=== PATIENT | female | born 1950 | race Caucasian/White ===

== ENCOUNTER 2022-10-05 14:03 | Outpatient (CLI) | payer MEDICARE, BC, SELFPAY ==
--- OUTSIDE RECORDS SUMMARY | 2022-10-05 14:05 | XMS_ITS | Encounter Summary ---
:1950 Author Organization [facility] Address [address] [place] [address] Care Team Providers Name Role Phone Olga Dixon M.D. Primary Care Provider Encounter Details Date Type Department Care Team Description 09/16/2022 Orders Only Department of Family Afsaneh Dixon M.D. Medicine in [place], [address] [place], [place] [address] [address] [place] [address] [phone] Social History Tobacco Use Types Packs/Day Years Used Date Smoking Tobacco: Former Passive Smoke Exposure: Never Smokeless Tobacco: Never Alcohol Use Standard Drinks/Week Comments Yes 0 (1 standard drink = 0.6 oz pure alcoho l) Sex Assigned at Date Recorded Female 09/08/2022 3:36 PM CDT documented as of this encounter Plan of Treatment Upcoming Encounters Date Type Specialty Care Team Description 10/06/2022 Comprehensive Visit Obstetrics and Gil Bailey M.D. Gynecology [address] [place] [address] (Wo rk) 02/07/2023 Office Visit Family Medicine Olga Dixon M.D. [address] [place] [address] (Wo rk) documented as of this encounter Visit Diagnoses Not on filedocumented in this encounter Care Teams Transitional Living Specialist Relationship Specialty Start Date End Date Olga Dixon M.D. PCP - General Family Medicine 04/14/22 [address] [place] [address] documented as of this encounter
--- OUTSIDE RECORDS SUMMARY | 2022-10-05 14:05 | XMS_ITS | Encounter Summary ---
:1950 Author Organization [facility] Address [address] [place] [address] Care Team Providers Name Role Phone Olga Dixon M.D. Primary Care Provider Reason for Referral Outpatient (Routine) - Closed Specialty Diagnoses / Procedures Referred By Contact Refer red To Contact Family Medicine Olga Dixon M .D. [facility] [address] [place] [address] Referral ID Status Reason Start Date Expiration Date Visits Requ ested Visits Authorized [id number] Closed 09/08/2022 09/07/2025 1 1 Reason for Visit Reason Comments Urinary Tract Infection X5 days Appointment Request (Routine) - Closed Specialty Diagnoses / Procedures Referred By Contact Refer red To Contact Family Medicine Referral ID Status Reason Start Date Expiration Date Visits Requ ested Visits Authorized [id number] Closed 09/03/2022 09/03/2023 1 1 Encounter Details Date Type Department Care Team Description 09/08/2022 Office Visit Department of Family Olga Dixon D ysuria (Primary Dx); Medicine in [place].DT[place] Pain Rectal WolfIvory jerry a [address] [facility] [address] [place] [phone] Social History Tobacco Use Types Packs/Day Years Used Date Smoking Tobacco: Former Passive Smoke Exposure: Never Smokeless Tobacco: Never Tobacco Cessation: Counseling Given: Yes Alcohol Use Standard Drinks/Week Comments Yes 0 (1 standard drink = 0.6 oz pure alcoho l) Sex Assigned at Date Recorded Female 09/08/2022 3:36 PM CDT documented as of this encounter Last Filed Vital Signs Vital Sign Reading Time Taken Comments Blood Pressure 164/75 09/08/2022 3:42 PM CDT Pulse 63 09/08/2022 3:37 PM CDT Temperature 36.3 ??C (97.4 ??F) 09/08/2022 3:37 PM CDT Respiratory Rate 14 09/08/2022 3:37 PM CDT Oxygen Saturation 99% 09/08/2022 3:37 PM CDT Inhaled Oxygen Concentration - - Weight 69.1 kg (152 lb 4.8 oz) 09/08/2022 3:37 PM CDT Height 160 cm (5' 2.99) 09/08/2022 3:37 PM CDT Body Mass Index 26.99 09/08/2022 3:37 PM CDT documented in this encounter Progress Notes Olga Dixon M.D. - 09/08/2022 3:30 PM CDT SUBJECTIVE CHIEF COMPLAINT / REASON FOR VISIT Karlene Patino is a 72 y.o. female who presents for evaluation of Urinary Tract Infection (X5 days). HISTORY OF PRESENT ILLNESS Patient has had a history of rectal pressure and dysuria for the last 5 days. She is had some urinary frequency but no incontinence. No diarrhea. No rectal pain just pressure. She thought it was a hemorrhoid so she is been using hemorrhoid cream and she does think that has been helping. She was worried about a UTI so she is here today for that purpose. No fevers or chills or abdominal pain. No vaginal discharge bleeding or other. She is status post hysterectomy. No previous history of kidney stones.No hematuria. Answers submitted by the patient for this visit: General Review of Symptoms (Submitted on 09/08/2022) No general issues: Yes No eye issues: Yes No ENT issues: Yes No heart issues: Yes No respiratory issues: Yes No GI issues: Yes No muscle/bone issues: Yes No skin issues: Yes No neurologic issues: Yes No mental health issues: Yes No blood/lymph issues: Yes Frequent urination: Yes Pain with urination: Yes Difficulty urinating: Yes Urgency: Yes The following portions of the patient's history were reviewed and updated as appropriate: allergies,current medications, medical history, social history, surgical history, and problem list. She is a nonsmoker. She lives at home with her . PROBLEM LIST: Patient Active Problem List Diagnosis Other Secondary Pulmonary Hypertension (HCC) Hypertension Essential Primary Tricuspid Valve Disorder Acquired Current Outpatient Medications: alendronate (FOSAMAX) 70 mg tablet, Take 70 mg by mouth once a week., Disp: , Rfl: atenoloL (TENORMIN) 50 mg tablet, Take 1 tablet (50 mg total) by mouth daily., Disp: 90 tablet, Rfl: 3 fexofenadine (MELANY) 180 mg tablet, Take 180 mg by mouth daily., Disp: , Rfl: glucosamine-chondroitin (GLUCOSAMINE-CHONDROITIN) 500-400 mg per capsule, Take 1 capsule by mouth 3(three) times a day., Disp: , Rfl: losartan (COZAAR) 100 mg tablet, Take 1 tablet (100 mg total) by mouth daily., Disp: 90 tablet, Rfl: 3 multivit-mins no.63/iron/folic (M-VIT ORAL), Take by mouth., Disp: , Rfl: omeprazole (PriLOSEC) [address] capsule, Take 1 capsule (20 mg total) by mouth every morning before breakfast., Disp: 90 capsule, Rfl: 3 triamcinolone (KENALOG) 0.1 % ointment, Apply 1 application topically 2 (two) times a day. Apply torectum., Disp: 30 g, Rfl: 0 OBJECTIVE BP (!) 164/75 (BP Location: Left arm, Patient Position: Sitting, Cuff Size: Regular) Pulse 63 Temp 36.3 ??C (Temporal) Resp 14 Ht 160 cm Wt 69.1 kg SpO2 99% BMI 26.99 kg/m?? PHYSICAL EXAM General: Patient is in no apparent distress and is alert and oriented. Mood and affect are bright and engaging. Patient is very pleasant and is articulate and she is a good historian. Neck: Supple without lymphadenopathy, JVD, carotid bruits or thyromegaly. Lungs: Clear to auscultation bilaterally. Heart: Regular rate and rhythm without murmur. Abdomen: Soft, nontender without hepatosplenomegaly, rebound or rigidity. There is no CVA tenderness. Vaginal and rectal exam is done. She has no external lesions or masses. She has mild erythema and the Nita rectal area. No evidence of trauma. No evidence of bleeding or discharge. There is some evidence of mild vaginitis. She has some external hemorrhoids that are not significantly inflamed. Lab results last 24 hours: Recent Results (from the past 24 hour(s)) Urinalysis with Microscopic if Indicated Collection Time: 09/08/22 3:36 PM Result Value Source Urine, Urine, Midstream Clarity Clear Color Yellow Blood Negative Nitrite Negative Leukocyte Esterase Negative Protein Negative Glucose Negative Ketones, QI(U) Negative Bilirubin Negative pH 6.0 Specific [place] <=1.005 Urobilinogen 0.2 ASSESSMENT / PLAN #1 Dysuria UA is completely clear of infection. I suspect some of her discomfort with urination or the end of urination is related to some external irritation either from some type of a vaginal nidus or some chemical irritation from the cream that she is putting on for the rectal discomfort. See below - Urinalysis with Microscopic if Indicated; Future; Expected date: 09/08/2022 - Urinalysis with Microscopic if Indicated #2 Pain Rectal I asked her to start using the [id number] cream and will try triamcinolone ointment to see if that does not help both her hemorrhoid dysfunction and discomfort and the topical dysfunction. She has never had an allergy to topical steroid creams. She had rash secondary to some type of a cortisone pill. Before she uses the triamcinolone vaginally I asked her to use it on her forearm for couple of days to make sure that it does not cause any irritation or rash. I will see her back in 1-2 weeks if she is not improved to determine next steps. She may need a pelvic ultrasound if the pressure continues to be an issue. She can call me in the interim if she has further problems prior to our follow-up a ppointment. Other orders - Family Medicine office visit (clinic); Future; Expected date: 09/22/2022 - triamcinolone (KENALOG) 0.1 % ointment; Apply 1 application topically 2 (two) times a day. Apply to rectum., Starting 09/08/2022, Normal documented in this encounter Plan of Treatment Upcoming Encounters Date Type Specialty Care Team Description 10/06/2022 Comprehensive Visit Obstetrics and Gil Bailey M.D. Gynecology [address] [place] [address] (Wo rk) 02/07/2023 Office Visit Family Medicine Olga Dixon M.D. [address] [place] [address] (Wo rk) Scheduled Referrals Name Type Priority Associated Diagnoses Order S [facility] Medicine Outpatient Referral Routine Expec mary kate: office visit 09/22/2022 (clinic) (Approximate), Expires: 12/09/2023 documented as of this encounter Procedures Procedure Name Priority Date/Time Associated Comments Diagnosis URINALYSIS WITH Routine 09/08/2022 3:36 PM Dysuria Result s for this MICROSCOPIC IF CDT procedure are in INDICATED, U the results section. documented in this encounter Results Urinalysis with Microscopic if Indicated (09/08/2022 3:36 PM CDT) Analysis Performed At Patho logist Time Signature Source Urine, Urine, 09/08/2022 [facility] Midstream 3:36 PM CDT Clarity Clear Clear 09/08/2022 [facility] 3:38 PM CDT Color Yellow 09/08/2022 [facility] 3:38 PM CDT Comment: ----REFERENCE VALUE---- Colorless Yellow Magalis Blood Negative Negative 09/08/2022 3:38 PM CDT [facility] Nitrite Negative Negative 09/08/2022 3:38 PM CDT [facility] Leukocyte Esterase Negative Negative 09/08/2022 3:38 PM CD T [facility] Protein Negative mg/dL 09/08/2022 3:38 PM CDT [facility] Comment: ----REFERENCE VALUE---- Negative Trace Glucose Negative Negative mg/dL 09/08/2022 3:38 PM CDT [facility] Ketones, QI(U) Negative Negative mg/dL 09/08/2022 3:38 PM C DT [facility] Bilirubin Negative Negative 09/08/2022 3:38 PM CDT [facility] pH 6.0 5.0 - 8.0 09/08/2022 3:38 PM CDT [facility] Specific [place] <=1.005 1.001 - 1.035 09/08/2022 3:38 PM CDT [facility] Urobilinogen 0.2 0.2 - 1.0 mg/dL 09/08/2022 3:38 PM CD T [facility] Specimen Anatomical Collection Method Collection Time Receive d Time (Source) Location / / Volume Laterality Urine (Urine, 09/08/2022 3:36 PM 09/08/20 3:36 Midstream) CDT PM CDT Olga Dixon M.D. LAB URINE ORDERABLES Performing Organization Address City/State/ZIP Code Phon e Number [facility]- [address] [place] [phone] [facility] [place] [address] documented in this encounter Visit Diagnoses Diagnosis Dysuria - Primary Pain Rectal documented in this encounter Care Teams Buffet Server Relationship Specialty Start Date End Date Olga Dixon M.D. PCP - General Family Medicine 04/14/22 [address] [place] [address] documented as of this encounter
--- OUTSIDE RECORDS SUMMARY | 2022-10-05 14:05 | XMS_ITS | Clinical Summary ---
:1950 Author Organization [facility] Address [address] [place] [address] Care Team Providers Name Role Phone Olga Dixon M.D. Primary Care Provider Source Comments Patient records contain information from all sites at [facility]. For routine questions regarding patient records, call [phone] during business hours, M-F 8:00 AM - 5:00 PM Central Time. Record requests for emergency care only can be directed to [phone] at any time.[facility] Allergies Active Allergy Reactions Severity Noted Date Comments Amoxicillin GI intolerance 04/14/2022 Cefprozil Rash 01/23/2007 Celecoxib Other (see comments) 04/14/2022 Cetirizine Palpitations 12/17/2013 Clavulanic Acid GI intolerance 04/14/2022 Corticosteroids Other (see comments) 04/14/2022 (Glucocorticoids) Diclofenac-Misoprostol Palpitations 01/23/2007 Erythromycin GI intolerance, Other 01/23/2007 hypera ctive (see comments) Hydrocortisone Rash 12/17/2013 Latex Rash 12/26/2013 wore a band-aid for 1/2 day and had rash Lisinopril Cough 04/14/2022 Loratadine Other (see comments) 12/17/2013 nose bl eeds Methotrexate Other (see comments) 12/17/2013 light h eaded Misoprostol Other (see comments) 12/25/2013 Nsaids (Non-Steroidal Other (see comments) 12/25/2013 Anti-Inflammatory Drug) Sucralfate Palpitations 12/17/2013 Sulfamethoxazole-Trimeth Other (see comments) 01/23/20 07 she can't remember oprim Terfenadine Other (see comments) 12/25/2013 Triamcinolone Other (see comments) Low 09/24/2022 burnin g Medications Medication Sig Dispensed Refills Start End Date Status Date alendronate Take 70 mg by 0 Acti ve (FOSAMAX) 70 mg mouth once a 2 tablet week. multivit-mins Take by mouth. 0 A ctive no.63/iron/folic (M-VIT ORAL) glucosamine-chondroi Take 1 capsule 0 Active tin by mouth 3 (GLUCOSAMINE-CHONDRO (three) times a ITIN) 500-400 mg per day. capsule fexofenadine Take 180 mg by 0 Ac tive (MELANY) 180 mg mouth daily. tablet losartan (COZAAR) Take 1 tablet 90 tablet 3 04/14/20 Active 100 mg tablet (100 mg total) 2 23 by mouth daily. omeprazole Take 1 capsule 90 capsule 3 04/22/20 Act vinh (PriLOSEC) [address] (20 mg total) by 2 23 capsule mouth every morning before breakfast. atenoloL (TENORMIN) Take 1 tablet 90 tablet 3 Active 50 mg tablet (50 mg total) by 2 23 mouth daily. phenazopyridine Take 1 tablet 10 tablet 0 10/24/20 Active (PYRIDIUM) 100 mg (100 mg total) 2 22 tablet by mouth 3 (three) times a day as needed for painful urination. triamcinolone Apply 1 30 g 0 09/24/20 Discon tinued (KENALOG) 0.1 % application 2 22 ointment topically 2 (two) times a day. Apply to rectum. fluconazole Take 1 tablet 1 tablet 0 09/24/20 Expi red (DIFLUCAN) 150 mg (150 mg total) 2 22 tablet by mouth once for 1 dose. 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 09/14/2022 Orders Only Family Olga Ge M.D. 09/08/2022 Office Visit [facility] Olga Ge Dysuria ( Primary Dx); Janette Reynolds Pain Rectal 08/16/2022 Hospital Encounter Radiology Olga Dixon Screen ing Mammogram Janette Reynolds Breast Cancer 08/04/2022 Office Visit Family Medicine Olga Dixon Hypertens ion Essential Primary (Primary Dx); Janette Reynolds Acute Cystitis Without Hematuria from Last 3 Months Immunizations Name Administration Dates Next Due HZV (ZOSTAVAX) 09/12/2015 PCV13 09/12/2015 PPSV23 08/09/2017 SARS-COV-2 (COVID-19) - MODERNA 02/11/2021 Tdap 07/16/2010 Family History Relation Name Status Comments Father Mother Social History Tobacco Use Types Packs/Day Years Used Date Smoking Tobacco: Former Passive Smoke Exposure: Never Smokeless Tobacco: Never Tobacco Cessation: Counseling Given: Yes Alcohol Use Standard Drinks/Week Comments Yes 0 (1 standard drink = 0.6 oz pure alcoho l) Sex Assigned at Date Recorded Female 09/08/2022 3:36 PM CDT Last Filed Vital Signs Vital Sign Reading Time Taken Comments Blood Pressure 138/71 09/24/2022 1:47 PM CDT Pulse 63 09/24/2022 1:39 PM CDT Temperature 36.3 ??C (97.4 ??F) 09/08/2022 3:37 PM CDT Respiratory Rate 14 09/08/2022 3:37 PM CDT Oxygen Saturation 99% 09/24/2022 1:39 PM CDT Inhaled Oxygen Concentration - - Weight 68.5 kg (151 lb) 09/24/2022 1:39 PM CDT Height 160 cm (5' 2.99) 09/24/2022 1:39 PM CDT Body Mass Index 26.76 09/24/2022 1:39 PM CDT Plan of Treatment Upcoming Encounters Date Type Specialty Care Team Description 10/06/2022 Comprehensive Visit Obstetrics and Gil Bailey M.D. Gynecology [address] [place] [address] (Wo rk) 02/07/2023 Office Visit Family Medicine Olga Dixon M.D. [address] [place] [phone] (Wo rk) Health Maintenance Due Date Last Done Comments CT Colonography 1950 Cologuard 1950 Colonoscopy 1950 Colorectal Cancer Screening 1950 FIT 1950 Hepatitis C Screening 1950 Zoster Vaccines (2 of 3) 11/07/2015 09/12/2015 DTaP,Tdap,and Td Vaccines (2 - Td 07/16/2020 07/16/2010 or Tdap) COVID-19 Vaccine (2 - Moderna 03/11/2021 02/11/2021 series) Influenza Vaccine (#1) 2022 Creatinine Level 04/30/2023 04/30/2022, 04/14/2022, 12/27/2013, Additional history exists Potassium Level 04/30/2023 04/30/2022, 04/14/2022, 12/27/2013 Sodium Level 04/30/2023 04/30/2022, 04/14/2022, 12/27/2013 Visit: Chronic Disease, age 18+ 08/04/2023 08/04/2022 Mammogram 08/16/2023 08/16/2022, 10/12/2018, 05/19/2016, Additional history exists Office Visit for Blood Pressure 09/24/2023 09/24/2022 Check / Re-check Fasting Glucose for Diabetes 04/30/2025 04/30/2022, 022, Screening 12/27/2013 Pneumococcal vaccine (65+ years) Completed 08/09/2017, Depression Screening (Annual Completed 04/30/2022 PHQ-2) Fall Risk Screen (Annual) Completed 04/30/2022 Medical Devices Implanted Type Area Warehouse Order Filler Device Shelf Model / Identifier Expiration Serial / Date Lot Align Sling Retropubic - Montes [id number] Urogenital Other/Legacy - [employer] Implanted: Qty: 1 on 12/26/2013 Implant See Implant Description Description: Device Warehouse Order Filler - [employer] Patient Care Division. Body Location - Other. Not Applicable. Device Status Text - URO [id number]. Procedures Procedure Name Priority Date/Time Associated Comments Diagnosis URINALYSIS WITH Routine 09/08/2022 3:36 Dysuria Results f or MICROSCOPIC IF PM CDT this procedur e INDICATED, U are in the results section. BI BREAST SCREENING RAD - Routine 08/16/2022 3:04 Screening Resu lts for BILATERAL WITH (most inpatients PM CDT Mammogram Breast this procedure TOMOSYNTHESIS and all Cancer are in the outpatients) results section. from Last 3 Months Results Urinalysis with Microscopic if Indicated (09/08/2022 [...] 8.0 09/08/2022 3:38 PM CDT [facility] Specific [place] <=1.005 1.001 - 1.035 09/08/2022 3:38 PM CDT [facility] Urobilinogen 0.2 0.2 - 1.0 mg/dL 09/08/2022 3:38 PM CD T [facility] Specimen Anatomical Collection Method Collection Time Receive d Time (Source) Location / / Volume Laterality Urine (Urine, 09/08/2022 3:36 PM 09/08/20 3:36 Midstream) CDT PM CDT Olga Dixon M.D. LAB URINE ORDERABLES Performing Organization Address City/State/ZIP Code Phon e Number [facility]- [address] [place], [place] [address] [facility] [place] [place] [address] [facility] [address] BI Breast Screening Bilateral with Tomosynthesis (08/16/2022 3:04 PM CDT) Anatomical Region Laterality Modality Breast, Breast Imaging RST LOS, Breast Imaging ARZ LOS, [address] Bilateral Mammography Imaging FLA LOS Specimen (Source) Anatomical Collection Method Collection Time Re ceived Time Location / / Volume Laterality 08/16/2022 4:24 PM CDT Impressions 08/16/2022 4:25 PM CDT Negative. RECOMMENDATION: ??Annual Screening Mammo gram ASSESSMENT: ??BI-RADS: 1: Negative. Narrative 08/16/2022 4:25 PM CDT EXAM: ??BI BREAST SCREENING BILATERAL WITH TOMOSYNTHESIS Current study was evaluated with a Compu ter Aided Detection (CAD) system. INDICATION: ??Screening mammogram. COMPARISON: ??Prior exam(s) were availab le and reviewed for comparison. DENSITY: ??a. The breast(s) are almost e ntirely fatty. FINDINGS: ??No mammographic findings of malignancy. Procedure Note Gómez Pfeiffer M.D. - 08/16/2022Formatt ing of this note might be different from the original. EXAM: BI BREAST SCREENING BILATERAL WITH TOMOSYNTHESIS Current study was evaluated with a Compu ter Aided Detection (CAD) system. INDICATION: Screening mammogram. COMPARISON: Prior exam(s) were available and reviewed for comparison. DENSITY: a. The breast(s) are almost ent irely fatty. FINDINGS: No mammographic findings of ma lignancy. IMPRESSION: Negative. RECOMMENDATION: Annual Screening Mammogr am ASSESSMENT: BI-RADS: 1: Negative. Olga Dixon M.D. IMG BI PROCEDURES from Last 3 Months Insurance Payer Benefit Plan Subscriber ID Effective Phone Address Typ e / Group Dates MEDICARE MEDICARE A [id number] 2021-Pres [address] [place] [address] [employer] [place] [id number] 2021-Pres [phone] PO TACO X Cost Share BLUE [employer]IELD BLUE COST ent [phone] [place] [address] Care Teams Abattoir Supervisor Relationship Specialty Start Date End Date Olga Dixon M.D. PCP - General Family Medicine 04/14/22 [address] [place] [phone]
--- OUTSIDE RECORDS SUMMARY | 2022-10-05 14:05 | XMS_ITS | Encounter Summary ---
:1950 Author Organization [facility] Address [address] [place] [address] Care Team Providers Name Role Phone Olga Dixon M.D. Primary Care Provider Encounter Details Date Type Department Care Team Description 09/14/2022 Orders Only Department of Family Afsaneh Dixon M.D. Medicine in [place], [address] [place], [place] [address] [address] [place] [address] [phone] Social History Tobacco Use Types Packs/Day Years [...] Obstetrics and Gil Bailey M.D. Gynecology [address] [place] [address] (Wo rk) 02/07/2023 Office Visit Family Medicine Olga Dixon M.D. [address] [place] [address] (Wo rk) documented as of this encounter Visit Diagnoses Not on filedocumented in this encounter Care Teams Global Professional Relationship Specialty Start Date End Date Olga Dixon M.D. PCP - General Family Medicine 04/14/22 [address] [place] [address] documented as of this encounter
--- OUTSIDE RECORDS SUMMARY | 2022-10-05 14:05 | XMS_ITS | Encounter Summary ---
:1950 Author Organization [facility] Address [address] [place] [address] Care Team Providers Name Role Phone Olga Dixon M.D. Primary Care Provider Encounter Details Date Type Department Care Team Description 09/28/2022 Orders Only [facility] SELF TEST [facility] Olga Dixon, Screening Cancer [address] [facility] [place] [place] [address] [phone] [place], [place] [phone] (Abbe johnson) Social History Tobacco Use Types Packs/Day Years [...] Obstetrics and Gil Bailey M.D. Gynecology [address] [place] [phone] (Wo rk) 02/07/2023 Office Visit Family Medicine Olga Dixon M.D. [address] [place] [address] (Abbe johnson) Scheduled Orders Name Type Priority Associated Diagnoses Order S chedule Cologuard-Sent Out Lab Lab Routine Screening Cancer C olon Expected: 10/12/2022 (Approximate), Expires: 12/29/2023 documented as of this encounter Visit Diagnoses Diagnosis Screening Cancer Colon documented in this encounter Care Teams Pasting Inspector Relationship Specialty Start Date End Date Olga Dixon M.D. PCP - General Family Medicine 04/14/[address] [place] [phone] documented as of this encounter
--- OUTSIDE RECORDS SUMMARY | 2022-10-05 14:05 | XMS_ITS | Encounter Summary ---
:1950 Author Organization [facility] Address [address] [place] [address] Care Team Providers Name Role Phone Olga Dixon M.D. 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 [address] [place] [address] Referral ID Status Reason Start Date Expiration Date Visits V isits Requested Authorized [id number] Authorized 09/24/2022 09/24/2023 1 1 Reason for Visit Reason Comments Hemorrhoids Outpatient (Routine) - Closed Specialty Diagnoses / Procedures Referred By Contact Refer red To Contact Family Medicine Olga Dixon M .D. [facility] [address] [place] [address] Referral ID Status Reason Start Date Expiration Date Visits Requ ested Visits Authorized [id number] Closed 09/08/2022 09/07/2025 1 1 Encounter Details Date Type Department Care Team Description 09/24/2022 Office Visit Department of Family Olga Dixon U rethral Disorders In Diseases Classified Elsewhere (Primary Dx); Medicine in M.D. Aneurysm Aortic Ascending Without Ruptur e ([facility]) [place] Wolf [address] [facility] [address] [place] [phone] Social History Tobacco Use Types Packs/Day Years [...] Pulse 63 09/24/2022 1:39 PM CDT Temperature - - Respiratory Rate - - Oxygen Saturation 99% 09/24/2022 1:39 PM CDT Inhaled Oxygen Concentration - - Weight 68.5 kg (151 lb) 09/24/2022 1:39 PM CDT Height 160 cm (5' 2.99) 09/24/2022 1:39 PM CDT Body Mass Index 26.76 09/24/2022 1:39 PM CDT documented in this encounter Progress Notes Olga Dixon M.D. - 09/24/2022 2:00 PM CDT SUBJECTIVE CHIEF COMPLAINT / REASON FOR VISIT Karlene Patino is a 72 y.o. female who presents for evaluation of painful urination. HISTORY OF PRESENT ILLNESS Patient returns today for continued dysuria. She has significant urethral burning after urination. No discharge or itching or odor. She has no stooling issues. She notes that initially she did have some rectal discomfort and so is using xoml-meg-hzbqnlt products and she thought she might have a reaction to those srot-deg-emsbhog products for her hemorrhoids which created the dysuria. She was seen by me on September 08 with a fairly normal exam. We tried topical steroid ointment as I was concerned that she was having some chemical irritation from the howk-ytt-msgxdod products but she states that thetriamcinolone ointment significantly worsened her issue. Right now she is not really using any issue. She is not having significant frequency. No fevers or chills. UA last time was normal. Symptoms have been going on 3-4 weeks. The following portions of the patient's history were reviewed and updated as appropriate: allergies,current medications, medical history, and problem list. She does not smoke or drink alcohol. 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 PHYSICAL EXAM She is in no apparent distress and she is very cooperative. Pelvic exam is completed. Today she has no perirectal inflammation or irritation. No active hemorrhoids are noted. She is no vaginal discharge or erythema. She does however today have a small ulcer at the 6 o'clock position just underneath the urethra. The also has some surrounding erythema. ASSESSMENT / PLAN #1 Aneurysm Aortic Ascending Without Rupture (HCC) Patient has follow-up ultrasound scheduled. She is currently asymptomatic and aneurysm diameter is less than 5 cm. 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 Will have her see Urogynecology for their expert opinion on next steps for the small ulcer. In the interim I did give her Pyridium just to help with dysuria. I gave her 10 tablets to try to see if that does not help make urination more comfortable. UA has been completed and there is no active infection. Patient does want to try some treatment for possible yeast infection. She tells me she has a history of yeast infection inthe past. 150 mg of Diflucan is offered as we want to avoid topicals at this time. - Obstetrics and Gynecology - Urogynecology consult (clinic); Future; Expected date: 09/24/2022 Other orders - Family Medicine office visit (clinic) - phenazopyridine (PYRIDIUM) 100 mg tablet; Take 1 tablet (100 mg total) by mouth 3 (three) times a day as needed for painful urination., Starting 09/24/2022, Until 10/24/2022 at 2359, Normal Answers submitted by the patient for this [...] urination: Yes Difficulty urinating: Yes Urgency: Yes documented in this encounter Plan of Treatment Upcoming Encounters Date Type Specialty Care Team Description 10/06/2022 Comprehensive Visit [facility] and Gil Bailey M.D. Gynecology [address] [place] [address] (Abbe johnson) 02/07/2023 Office Visit Family Medicine Olga Dixon M.D. [address] [place] [phone] (Abbe johnson) Scheduled Referrals Name Type Priority Associated Order Schedule Diagnoses Obstetrics and Outpatient Referral Routine Urethral Disorders Expected: Gynecology - In Diseases 09/24/2022 Urogynecology consult Classified (Appro ximate), (clinic) Elsewhere Expires: 12/25/2023 documented as of this encounter Visit Diagnoses Diagnosis Urethral Disorders In Diseases Classifie d Elsewhere - Primary Aneurysm Aortic Ascending Without Ruptur e (HCC) documented in this encounter Care Teams Liquor Runner Relationship Specialty Start Date End Date Olga Dixon M.D. PCP - General Family Medicine 04/14/[address] [place] [phone] documented as of this encounter
--- OUTSIDE RECORDS SUMMARY | 2022-10-05 14:06 | XMS_ITS | Encounter Summary ---
:1950 Author Organization [facility] Address [address] [place] [address] Care Team Providers Name Role Phone Unavailable Primary Care Provider Unavailable Encounter Details Date Type Department Care Team Description 02/11/2021 [facility] (Primary Dx) [address] [place] [address] Social History Tobacco Use Types Packs/Day Years Used Date Smoking Tobacco: Former Sex Assigned at Date Recorded Female 09/08/2022 3:36 PM CDT documented as of this encounter Plan of Treatment Upcoming Encounters Date Type Specialty Care Team Description 10/06/2022 Comprehensive Visit Obstetrics and Gil Bailey M.D. Gynecology [address] [place] [phone] (Abbe johnson) 02/07/2023 Office Visit Family Medicine Olga Dixon M.D. [address] [place] [address] (Abbe johnson) documented as of this encounter Visit Diagnoses Diagnosis Encounter For COVID-19 Vaccine Immunizat ion - Primary documented in this encounter
--- OUTSIDE RECORDS SUMMARY | 2022-10-05 14:06 | XMS_ITS | Encounter Summary ---
:1950 Author Organization [facility] Address [address] [place] [address] Care Team Providers Name Role Phone Unavailable Primary Care Provider Unavailable Encounter Details Date Type Department Care Team Description 07/20/[address] [facility] Amanda Clark Au.D. [address] [place] [address] (Wo rk) Social History Tobacco Use Types Packs/Day Years Used Date Smoking Tobacco: Never Assessed Sex Assigned at Date Recorded Female 09/08/2022 3:36 PM CDT documented as of this encounter Medications at Time of Discharge Medication Sig Dispensed Refills Start Date End Date atenoloL (TENORMIN) 25 mg Take 1 tablet by 0 11/2904/22/2022 tablet mouth every evening. documented as of this encounter Consult Notes Amanda Greene Au.D. - 07/20/2016 4:05 PM CDT Audiologic Evaluation Report CHIEF COMPLAINT/REASON FOR VISIT Hearing loss HISTORY Karlene comes in today for a follow-up audiologic evaluation. She was seen previously for a sudden hearing loss in her left ear which occurred about 2 months ago. She was prescribed prednisone and antibiotics, and she is here today for a 1 month follow-up audiogram. She reports her hearing has seemed to improve since the last time she was here. She still is having occasional tinnitus and struggles when in background noise. She denies any otalgia, otorrhea, vertigo. EVALUATION An otoscopic examination was performed prior to testing. Audiologic evaluation showed normal hearing sensitivity at 250 Hz, sloping to a mild sensorineural hearing loss 500-1000 Hz, rising to normal hearing sensitivity 2-8 kHz, in the right ear. The left ear showed a moderate rising to mild sensorineural hearing loss 250-3000 Hz, sloping to moderate to moderately-severe sensorineural hearing loss 4-8 kHz. The word recognition scores were excellent bilaterally. Tympanometry was performed and showed type A tympanograms with normal ear canal volumes. This is consistent with intact and appropriately mobile tympanic membranes with normal middle ear pressure bilaterally. IMPRESSION/REPORT/PLAN Karlene presents today with a mild sensorineural hearing loss in the right ear and a mild to moderately-severe sensorineural hearing loss in the left ear. The left ear thresholds have improved between 5-20 dB across most frequencies. It is recommended that Karlene see ENT as scheduled. She should return for a recheck of her hearing pending intervention, which should include acoustic reflexes. A copy of todays test results as well as educational materials about hearing loss and communicationwere provided. RECOMMENDATIONS 1. Return for further testing if a change in hearing is noted. 2. Follow-up with ENT, as scheduled. 3. Recheck hearing pending intervention from ENT DIAGNOSIS 1. Sensorinerual hearing loss, bilateral 2. Tinnitus, bilateral REFERRING PROVIDER Dr. Chen Electronically Signed By: AMANDA GREENE On: 07/20/2016 04:06 PM Source: [facility] POWERCHART Document Id: [id number] documented in this encounter Plan of Treatment Upcoming Encounters Date Type Specialty Care Team Description 10/06/2022 Comprehensive Visit Obstetrics and Gil Bailey M.D. Gynecology [address] [place] [phone] (Abbe johnson) 02/07/2023 Office Visit Family Medicine Olga Dixon M.D. [address] [place] [phone] (Abbe johnson) documented as of this encounter Visit Diagnoses Not on filedocumented in this encounter
--- OUTSIDE RECORDS SUMMARY | 2022-10-05 14:06 | XMS_ITS | Encounter Summary ---
:1950 Author Organization [facility] Address [address] [place] [address] Care Team Providers Name Role Phone Olga Dixon M.D. Primary Care Provider Reason for Visit Reason Comments Urinary Tract Infection Back Pain Appointment Request (Routine) - Closed Specialty Diagnoses / Procedures Referred By Contact Refer red To Contact Family Medicine Referral ID Status Reason Start Date Expiration Date Visits Requ ested Visits Authorized [id number] Closed 06/28/2022 06/28/2023 1 1 Encounter Details Date Type Department Care Team Description 06/30/2022 Office Visit Department of Family Sara Brunner (Primary Dx); Medicine in M, INSECT CONTROL AIDE, C.N.P. Infection Urinary Tract Acute [facility] [address] [facility] [place] [address] [place] [phone] Social History Tobacco Use Types Packs/Day Years Used Date Smoking Tobacco: Former Smokeless Tobacco: Never Tobacco Cessation: Counseling Given: Yes Alcohol Use Standard Drinks/Week Comments Yes 0 (1 standard drink = 0.6 oz pure alcoho l) Sex Assigned at Date Recorded Female 09/08/2022 3:36 PM CDT documented as of this encounter Last Filed Vital Signs Vital Sign Reading Time Taken Comments Blood Pressure 165/73 06/30/2022 2:23 PM CDT Pulse 75 06/30/2022 2:13 PM CDT Temperature 35 ??C (95 ??F) 06/30/2022 2:13 PM CDT Respiratory Rate - - Oxygen Saturation 100% 06/30/2022 2:13 PM CDT Inhaled Oxygen Concentration - - Weight 67.6 kg (149 lb) 06/30/2022 2:13 PM CDT Height 160 cm (5' 2.99) 06/30/2022 2:13 PM CDT Body Mass Index 26.4 06/30/2022 2:13 PM CDT documented in this encounter Progress Notes Sara Brunner APRN, MiniNJoseline. - 06/30/2022 2:30 PM CDT SUBJECTIVE REASON FOR VISIT Urinary Tract Infection and Back Pain HISTORY OF PRESENT ILLNESS: Karlene Patino is a 71 y.o. female who presents today for possible UTI. Symptoms of dysuria and urgency have been going on for 1 week(s).C/O mild right lower flank pain on and off, no N/V/chills/sweats. She describes no fever, abdominal pain, and blood in urine. OBJECTIVE VITAL SIGNS: BP (!) 165/73 Pulse 75 Temp (!) 35 ??C (Temporal) Ht 160 cm Wt 67.6 kg SpO2 100% BMI 26.40 kg/m?? PHYSICAL EXAM: GENERAL: She is alert, oriented and appears to be in no distress. CARDIOVASCULAR: Heart is regular rate and rhythm. There are no murmurs, gallops or rubs. RESPIRATORY: Breathing is nonlabored. Lungs are clear to auscultation bilaterally. GI/: Abdomen is soft, bowel sounds are active. Nosuprapubic tenderness, no CVA tenderness EXTREMITIES: There is no lower extremity edema. Diagnostics Results for orders placed or performed in visit on 06/30/22 Urinalysis with Microscopic if Indicated Result Value Ref Range Source Urine, Urine, Clean Catch Clarity Clear Clear Color Yellow Blood Trace (A) Negative Nitrite Negative Negative Leukocyte Esterase Large (A) Negative Protein Negative mg/dL Glucose Negative Negative mg/dL Ketones, QI(U) Negative Negative mg/dL Bilirubin Negative Negative pH 5.5 5.0 - 8.0 Specific Thurston <=1.005 1.001 - 1.035 Urobilinogen 0.2 0.2 - 1.0 mg/dL Microscopic Manual Result Value Ref Range White Blood Cells 51-100 (A) /hpf Red Blood Cells None Seen 0 - 2 /hpf Bacteria Present (A) None Seen ASSESSMENT / PLAN #1 Dysuria - Urinalysis with Microscopic if Indicated Medication recommendations: Nitrofurantoin Further testing ordered (Blood culture, CBC, BMP): Yes- urine culture She was instructed to drink plenty of water and use Tylenol/ibuprofen as needed for fevers or pain. UTI prevention recommendations were discussed. She was instructed to return in 48-72 hours if no improvement in symptoms or if she develop high fevers, vomiting with the inability to tolerate fluids, flank pain or lethargy. documented in this encounter Plan of Treatment Upcoming Encounters Date Type Specialty Care Team Description 10/06/2022 Comprehensive Visit Obstetrics and Gil Bailey M.D. Gynecology [address] [place] [phone] (Wo rk) 02/07/2023 Office Visit Family Medicine Olga Dixon M.D. [address] [place] [phone] (Wo rk) documented as of this encounter Procedures Procedure Name Priority Date/Time Associated Comments Diagnosis BACTERIAL CULTURE, Routine 06/30/2022 2:50 PM Dysuria Res ults for this AEROBIC + SUSC, URINE CDT proced ure are in the results section. URINALYSIS WITH Routine 06/30/2022 2:42 PM Dysuria Result s for this MICROSCOPIC IF CDT procedure are in INDICATED, U the results section. HC URINALYSIS AUTO W Routine 06/30/2022 2:42 PM R esults for this MICRO CDT procedure are i n the results section. documented in this encounter Results (ABNORMAL) Bacterial Culture, Aerobic + Susc, Urine (06/30/2022 2:50 PM CDT) [facility] Method Time Signature Urine Culture with mixed 07/02/2022 MKTO microbiota (A) 5:01 AM CDT Urine Culture PSEUDOMONAS AERUGINOSA 07/02/2022 MK TO 10,000-100,000 cfu/mL 5:01 AM CDT (A) Specimen Anatomical Collection Method Collection Time Receive d Time (Source) Location / / Volume Laterality Urine (Urine, 06/30/2022 2:50 PM 06/30/20 22 Midstream) CDT 10:56 PM CDT Comment: Specimen Source Site: Urine Organism Antibiotic Method Susceptibility Pseudomonas aeruginosa Piperacillin + SUSCEPTIBILITY, 8 mcg/mL: Susceptible Tazobactam DOLORES (MCG/ML) Pseudomonas aeruginosa Ceftazidime SUSCEPTIBILITY, 2 mcg/mL: Susceptible DOLORES (MCG/ML) Pseudomonas aeruginosa Cefepime SUSCEPTIBILITY, <=1 mcg/m L: Susceptible DOLORES (MCG/ML) Pseudomonas aeruginosa Meropenem SUSCEPTIBILITY, <=0.25 mc g/mL: DOLORES (MCG/ML) Susceptible Pseudomonas aeruginosa Gentamicin SUSCEPTIBILITY, <=1 mcg/m L: Susceptible DOLORES (MCG/ML) Pseudomonas aeruginosa Tobramycin SUSCEPTIBILITY, <=1 mcg/m L: Susceptible DOLORES (MCG/ML) Pseudomonas aeruginosa Levofloxacin SUSCEPTIBILITY, 0.5 mcg/m L: Susceptible DOLORES (MCG/ML) Sara Brunner APRN, C.N.P. LAB MICROBIOLOGY - GENE RAL ORDERABLES Performing Organization Address City/[facility] Phon e Number [facility]- [address] [place] [id number] [place] [address] [address] (ABNORMAL) Microscopic Manual (06/30/2022 2:42 PM CDT) Analysis Performed At Patho logist Time Signature White Blood 51-100 (A) /hpf 06/30/2022 NPRG Cells 7:28 PM CDT Comment: ----REFERENCE VALUE---- Males: 0-3 Females: 0-10 Unknown: 0-10 Red Blood Cells None Seen 0 - 2 /hpf 06/30/2022 7:28 PM CDT NPRG Bacteria Present (A) None Seen 06/30/2022 7:28 PM CDT NPRG Specimen Anatomical Collection Method Collection Time Receive d Time (Source) Location / / Volume Laterality Urine 06/30/2022 2:42 PM 7:19 CDT PM CDT Sara Brunner APRN, C.N.P. LAB URINE ORDERABLES Performing Organization Address City/[facility]/ZIP Code Phon e Number [facility]- [address] [place] [phone] [facility] [facility] [place] [address] [facility] [address] (ABNORMAL) Urinalysis with Microscopic if Indicated (06/30/2022 2:42 PM CDT) P athologist Signature Source Urine, 06/30/2022 [facility] Urine, Clean 2:42 PM CDT Catch Clarity Clear Clear 06/30/2022 [facility] 2:44 PM CDT Color Yellow 06/30/2022 [facility] 2:44 PM CDT Comment: ----REFERENCE VALUE---- Colorless Yellow Magalis Blood Trace (A) Negative 06/30/2022 2:44 PM CDT [facility] Nitrite Negative Negative 06/30/2022 2:44 PM CDT [facility] Leukocyte Esterase Large (A) Negative 06/30/2022 2:44 PM CD T [facility] Protein Negative mg/dL 06/30/2022 2:44 PM CDT MT[facility] Comment: ----REFERENCE VALUE---- Negative Trace Glucose Negative Negative mg/dL 06/30/2022 2:44 PM CDT MT GY Ketones, QI(U) Negative Negative mg/dL 06/30/2022 2:44 PM C DT [facility] Bilirubin Negative Negative 06/30/2022 2:44 PM CDT [facility] pH 5.5 5.0 - 8.0 06/30/2022 2:44 PM CDT MT[facility] Specific Thurston <=1.005 1.001 - 1.035 06/30/2022 2:44 PM CDT [facility] Urobilinogen 0.2 0.2 - 1.0 mg/dL 06/30/2022 2:44 PM CD T [facility] Specimen Anatomical Collection Method Collection Time Receive d Time (Source) Location / / Volume Laterality Urine (Urine, 06/30/2022 2:42 PM 06/30/20 2:42 Clean Catch) CDT PM CDT Sara Brunner APRN C.N.P. LAB URINE ORDERABLES Performing Organization Address City/State/ZIP Code Phon e Number [facility]- [facility] [address] [place], [place] [address] [address] [facility] [place] [address] [place] [address] documented in this encounter Visit Diagnoses Diagnosis Dysuria - Primary Infection Urinary Tract Acute documented in this encounter Care Teams Dater Assembler Relationship Specialty Start Date End Date Olga Dixon M.D. PCP - General Family Medicine 04/14/[address] [place] [phone] documented as of this encounter
--- OUTSIDE RECORDS SUMMARY | 2022-10-05 14:06 | XMS_ITS | Encounter Summary ---
:1950 Author Organization [facility] Address [address] [place] [address] Care Team Providers Name Role Phone Olga Dixon M.D. Primary Care Provider Reason for Visit Reason Comments Follow-up B.P. Outpatient (Routine) - Closed Specialty Diagnoses / Procedures Referred By Contact Refer red To Contact Family Medicine Olga Dixon M .D. [facility] [address] [place] [address] Referral ID Status Reason Start Date Expiration Date Visits Requ ested Visits Authorized [id number] Closed 04/30/2022 04/30/2023 1 1 Encounter Details Date Type Department Care Team Description 08/04/2022 Office Visit Department of Family Olga Dixon H ypertension Essential Primary (Primary Dx); Medicine in M.D. Acute Cystitis Without Hematuria [address] [address] [place], [place] [phone] (Wo rk) [address] [phone] Social History Tobacco Use Types Packs/Day Years Used Date Smoking Tobacco: Former Smokeless Tobacco: Never Alcohol Use Standard Drinks/Week Comments Yes 0 (1 standard drink = 0.6 oz pure alcoho l) Sex Assigned at Date Recorded Female 09/08/2022 3:36 PM CDT documented as of this encounter Last Filed Vital Signs Vital Sign Reading Time Taken Comments Blood Pressure 131/78 08/04/2022 3:40 PM CDT Pulse 71 08/04/2022 3:17 PM CDT Temperature - - Respiratory Rate - - Oxygen Saturation 100% 08/04/2022 3:17 PM CDT Inhaled Oxygen Concentration - - Weight 67.6 kg (149 lb) 08/04/2022 3:17 PM CDT Height 160 cm (5' 2.99) 08/04/2022 3:17 PM CDT Body Mass Index 26.4 08/04/2022 3:17 PM CDT documented in this encounter Progress Notes Olga Dixon M.D. - 08/04/2022 3:30 PM CDT SUBJECTIVE CHIEF COMPLAINT / REASON FOR VISIT Karlene Patino is a 72 y.o. female who presents for evaluation of Follow-up (B.P.). HISTORY OF PRESENT ILLNESS Patient is here today for follow-up. She has been tolerating the losartan without any difficulty. She has been checking her blood pressure out at the local pharmacy and has had some variable results. Systolic pressures have been in the 130s to 140 and diastolic pressures have been consistently in the 70s. She is a nonsmoker. No lightheadedness or dizziness. She continues to get the nocturnal leg cramps but is content at this time doing some xsgm-yxo-xpssdhu remedies. She has no chest pain or palpitations or chest pressure. No shortness of breath or dyspnea exertion. She does also have some dysuria. She was in for bladder infection and treated with Macrodantin whichhelped a little bit but she continues have some frequency and burning with urination. No abdominal pain or pelvic pain. No vaginal discharge. No fevers or chills. No back pain. The following portions of the patient's history were reviewed and updated as appropriate: allergies,current medications, medical history, social history, and problem list. PROBLEM LIST: Patient Active Problem List Diagnosis Other Secondary Pulmonary Hypertension (HCC) Hypertension Essential Primary Tricuspid Valve Disorder Acquired Current Outpatient Medications: alendronate (FOSAMAX) 70 mg tablet, , Disp: , Rfl: atenoloL (TENORMIN) 50 mg [...] before breakfast., Disp: 90 capsule, Rfl: 3 levoFLOXacin (LEVAQUIN) 250 mg tablet, Take 1 tablet (250 mg total) by mouth daily for 3 days., Disp: 3 tablet, Rfl: 0 OBJECTIVE BP 131/78 Pulse 71 Ht 160 cm Wt 67.6 kg SpO2 100% BMI 26.40 kg/m?? PHYSICAL EXAM General: Patient is in no apparent distress and is alert and oriented. Mood and affect are bright and engaging. Patient is very pleasant and is articulate and a good historian. Lungs: Clear to auscultation bilaterally. Heart: Regular rate and rhythm with soft systolic murmur. No CVA tenderness No extremity edema ASSESSMENT / PLAN #1 Hypertension Essential Primary Blood pressure on recheck today is improved to but she is still appears to be having some elevation in her blood pressures so I did increase her atenolol to 50 mg day just to have broader coverage in help her blood pressures be more consistently below are at goal especially in light of her valvular dysfunction She is agreeable to that change. #2 Acute Cystitis Without Hematuria Patient is still quite symptomatic with UTI symptoms. Her culture grew out Pseudomonas which is not sensitive to the Macrodantin. Will do a short course of Levaquin and she is agreeable. She has multiple medication allergies Other orders - Family Medicine office visit (clinic) - atenoloL (TENORMIN) 50 mg tablet; Take 1 tablet (50 mg total) by mouth daily., Starting Tue08/04/2022, Until Fay 08/04/2023, Normal - levoFLOXacin (LEVAQUIN) 250 mg tablet; Take 1 tablet (250 mg total) by mouth daily for 3 days., Starting Tue08/04/2022, Until 08/07/2022, Normal documented in this encounter Plan of Treatment Upcoming Encounters Date Type Specialty Care Team Description 10/06/2022 Comprehensive Visit Obstetrics and Gil Bailey M.D. Gynecology [address] [place] [address] (Wo rk) 02/07/2023 Office Visit Family Medicine Olga Dixon M.D. [address] [place] [phone] (Wo rk) documented as of this encounter Visit Diagnoses Diagnosis Hypertension Essential Primary - Primary Acute Cystitis Without Hematuria documented in this encounter Care Teams Transformer Stock Clerk Relationship Specialty Start Date End Date Olga Dixon M.D. PCP - General Family Medicine 04/14/[address] [place] [phone] documented as of this encounter
--- OUTSIDE RECORDS SUMMARY | 2022-10-05 14:06 | XMS_ITS | Encounter Summary ---
:1950 Author Organization [facility] [place] [facility] Address [address] [place] [address] Care Team Providers Name Role Phone Olga Dixon M.D. Primary Care Provider Reason for Referral Outpatient (Routine) - Closed Specialty Diagnoses / Procedures Referred By Contact Refer red To Contact Diagnoses Screening Mammogram Breast Cancer Olga Dixon M.D. [facility] Procedures BI Breast Screening Bilateral with Tomosynthesis [address] [place] [address] Referral ID Status Reason Start Date Expiration Date Visits Requ ested Visits Authorized [id number] Closed 06/01/2022 06/01/2023 1 1 Reason for Visit Outpatient (Routine) - Closed Specialty Diagnoses / Procedures Referred By Contact Refer red To Contact Diagnoses Screening Mammogram Breast Cancer Olga Dixon M.D. [facility] Procedures BI Breast Screening Bilateral with Tomosynthesis [address] [place] [address] Referral ID Status Reason Start Date Expiration Date Visits Requ ested Visits Authorized [id number] Closed 06/01/2022 06/01/2023 1 1 Encounter Details Date Type Department Care Team Description 08/16/2022 Hospital Encounter Department of Olga Dixon Sc reening Mammogram Radiology in [facility] Breast Cancer [place], [place] [address] [facility], [place] [phone] Social History Tobacco Use Types Packs/Day Years Used Date Smoking Tobacco: Former Smokeless Tobacco: Never Alcohol Use Standard Drinks/Week Comments Yes 0 (1 standard drink = 0.6 oz pure alcoho l) Sex Assigned at Date Recorded Female 09/08/2022 3:36 PM CDT documented as of this encounter Medications at Time of Discharge Medication Sig Dispensed Refills Start Date End Date alendronate (FOSAMAX) 70 Take 70 mg by mouth 0 mg tablet once a week. atenoloL (TENORMIN) 50 mg Take 1 tablet (50 90 tablet 3 05/202208/04/2023 tablet mg total) by mouth daily. fexofenadine (MELANY) Take 180 mg by 0 180 mg tablet mouth daily. glucosamine-chondroitin Take 1 capsule by 0 (GLUCOSAMINE-CHONDROITIN) mouth 3 (three) 500-400 mg per capsule times a day. losartan (COZAAR) 100 mg Take 1 tablet (100 90 tablet 3 04/14/2023 tablet mg total) by mouth daily. multivit-mins Take by mouth. 0 no.63/iron/folic (M-VIT ORAL) omeprazole (PriLOSEC) 20 Take 1 capsule (20 90 capsule 3 04/22/[address] capsule mg total) by mouth every morning before breakfast. documented as of this encounter Plan of Treatment Upcoming Encounters Date Type Specialty Care Team Description 10/06/2022 Comprehensive Visit Obstetrics and Gil Bailey M.D. Gynecology [address] [place] [address] (Wo rk) 02/07/2023 Office Visit Family Medicine Olga Dixon M.D. [address] [place] [phone] (Wo rk) documented as of this encounter Procedures Procedure Name Priority Date/Time Associated Comments Diagnosis BI BREAST SCREENING RAD - Routine 08/16/2022 3:04 Screening Resu lts for BILATERAL WITH (most inpatients PM CDT Mammogram Breast this procedure TOMOSYNTHESIS and all Cancer are in the outpatients) results section. documented in this encounter Results BI Breast Screening Bilateral with Tomosynthesis (08/16/2022 3:04 PM CDT) Anatomical Region Laterality Modality Breast, Breast Imaging RST LOS, Breast Imaging ARZ LOS, [address] Bilateral Mammography Imaging FLA LOS Specimen (Source) Anatomical Collection Method Collection Time Re ceived Time Location / / Volume Laterality 08/16/2022 4:24 PM CDT Impressions 08/16/2022 4:25 PM CDT Negative. RECOMMENDATION: ??Annual Screening Mammo gram ASSESSMENT: ??BI-RADS: 1: Negative. Narrative 08/16/2022 4:25 PM CDT EXAM: ??BI BREAST SCREENING BILATERAL WITH TOMOSYNTHESIS Current study was evaluated with a [employer] ter Aided Detection (CAD) system. INDICATION: ??Screening [...] Negative. Olga Dixon M.D. IMG BI PROCEDURES documented in this encounter Visit Diagnoses Diagnosis Screening Mammogram Breast Cancer documented in this encounter Care Teams Parcel Post Delivery Relationship Specialty Start Date End Date Olga Dixon M.D. PCP - General Family Medicine 04/14/[address] [place] [phone] documented as of this encounter
--- OUTSIDE RECORDS SUMMARY | 2022-10-05 14:06 | XMS_ITS | Encounter Summary ---
:1950 Author Organization [facility] [place] Address [address] [place] [address] Care Team Providers Name Role Phone Unavailable Primary Care Provider Unavailable Encounter Details Date Type Department Care Team Description 05/19/2016 Hospital Encounter HX [facility] Oscar Ribera M.D. [address] [place], [place] [phone] (Wo rk) Social History Tobacco Use Types Packs/Day Years Used Date Smoking Tobacco: Never Assessed Sex Assigned at Date Recorded Female 09/08/2022 3:36 PM CDT documented as of this encounter Last Filed Vital Signs Vital Sign Reading Time Taken Comments Blood Pressure 128/63 05/19/2016 4:19 PM CDT Pulse 76 05/19/2016 4:19 PM CDT Temperature - - Respiratory Rate - - Oxygen Saturation - - Inhaled Oxygen Concentration - - Weight - - Height - - Body Mass Index - - documented in this encounter Medications at Time of Discharge Medication Sig Dispensed Refills Start Date End Date atenoloL (TENORMIN) 25 mg Take 1 tablet by 0 11/2904/22/2022 tablet mouth every evening. documented as of this encounter Progress Notes Cristofer Ribera M.D. - 05/19/2016 3:12 PM CDT [id number] CHIEF COMPLAINT/REASON FOR VISIT Hearing loss. HISTORY OF PRESENT ILLNESS Patient is a 65-year-old female seen in consultation at the request of Dr. Latham from [facility] for evaluation of hearing loss. She noted sudden hearing loss 5 weeks ago. This wasassociated with tinnitus and lightheaded, vertigo and imbalance. That has since improved. She feels the hearing has improved some since then. She was not treated with steroids. PHYSICAL EXAMINATION Audiologic evaluation today reveals a mild low frequency sensorineural hearing loss in the right ear. Otherwise normal. Left ear with a 45 decibel sensorineural hearing loss and sloping at 2000 to 4000hertz down to 70 decibels. She has 100% word recognition on the right, 88% on the left. Bilateral normal tympanometry. No drainage or pain from the ear. No family history of ear disease. No noise exposure. MEDICATIONS Reviewed in EMR. ALLERGIES Allergic drug reactions per the EMR. PAST MEDICAL/SURGICAL HISTORY Reviewed in the EMR. SOCIAL HISTORY Patient denies tobacco use. PHYSICAL EXAMINATION VITAL SIGNS: Blood pressure 128/63, pulse 76, temp 37.2 degrees. GENERAL APPEARANCE: Healthy appearing elderly female, alert and oriented, no acute distress. Communicates well. HEAD AND NECK: Skin of the head and neck is normal. Head is normocephalic. Vocal quality normal. Respirations unlabored. EARS: External ears normal. Otomicroscopic exam reveals normal appearing ear canals and tympanic membranes. Middle ear space appeared clear bilaterally. NEUROLOGIC: Cranial nerves are intact. Cross leg Romberg testing is negative. IMPRESSION/REPORT/PLAN Asymmetric sensorineural hearing loss, sensorineural hearing loss left ear, with resolving tinnitus and imbalance. PLAN: Discussed findings with patient. Discussed diagnosis. Discussed likely inner ear source of theproblem which appears to be recovering. Discussed moderate nature of hearing loss and good word recognition. Discussed option of prednisone taper starting at 40 mg a day for a week and tapering by 10 mg every 3 days. I discussed potential side effects. No contraindications by history. She is interested in proceeding with steroid taper. Will see again in followup in 6 weeks with repeat audiologic evaluation. Cristofer Ribera M.D./tania cc: Stephon Latham Electronically Signed By: CRISTOFER RIBERA MD On: 06/23/2016 04:48 PM Source: [facility] MHSDOLBEYNONRADSYS Document Id: [id number] documented in this encounter Miscellaneous Notes Miscellaneous - Cristofer Ribera M.D. - 05/19/2016 4:38 PM CDT Ambulatory Patient Summary [address] [id number] Visit Information Name: FRANCISCO PATINO [facility] [place] Number: [id number] Current Date: 05/19/2016 16:38:32 Physicians Attending Provider: CRISTOFER RIBERA MD Primary Care Provider: PCP, ELSEWHERE FRANCISCO PATINO has been given the following list of follow-up instructions, medication list, and patient education materials: Follow-up Instructions Your Medications Here is a list of your medications. It is important to take your medications as directed. Use a pillbox or chart to help remind you to take your medications. Please let your doctor or nurse know if you have problems taking your medications. Medication/Strength How to Take Indications/Special Instructions/Comments/Notes for Patient Medication Changes/Routing atenolol (atenolol 25 mg oral tablet) 1 Tablet(s), Oral, once a day glucosamine-chondroitin (Osteo Bi-Flex Double Strength) See Instructions one tab daily multivitamin with minerals (Centrum Silver) Oral, once a day multivitamin with minerals (Vitamin D with Minerals oral tablet) 1 Tablet(s), Oral, once a day predniSONE (predniSONE 10 mg oral tablet) 1 Tablet(s), Oral, once a day 40mg/d for 7 days then taperby 10mg q3days with 10mg/day last 3 days New Routed to [address] [address] pseudoephedrine (Sudafed) See Instructions Taking one tab daily rosuvastatin (Crestor 20 mg oral tablet) 1 Tablet(s), Oral, once a day (at bedtime) Stop Taking the Following Medications: Medication list as of 05-19-16 16:38 Attention: If you have any medications at home that are not on this list, DO NOT take them until youcontact your provider for clarification. Give a copy of your medication list to your primary care provider. Update your medication list any time medications or doses are changed and carry your medication list at all times in case of emergency. Electronically Signed By: CRISTOFER RIBERA MD Signed On:19-MAY-2016 16:38:29 Your Allergies & Intolerances Substance Reaction Symptoms Category Comments No Allergies found Your Problem List Problem Status Onset Comments No Problems found Your Upcoming Appointments Date Time Location Provider No Appointments found Attention: Contact your local Clinic if further appointment detail needed. Consider Using Patient Online Services Patient Online Services is a secure online and Mobile application that lets you: ?? View lab and test results ?? View portions of your medical record including clinical notes, immunizations and discharge summaries ?? Request an appointment or medication refill ?? Review your appointment schedule ?? Send secure messages to your care team Its easy to create an account if you dont have one. Go to [email or web address] and click on Create Your Account. Then, follow the directions to complete the online form. Youll be asked for your [facility] [place] number which you can find at the top of this document. Your Goals/Additional instructions: Source: [facility] POWERCHART Document Id: [id number] Miscellaneous - Cristofer Ribera M.D. - 05/19/2016 4:38 PM CDT Ambulatory Discharge Medication List [address] [id number] Visit Information Name: AMALIAFRANCISCO OLSEN [facility] [place] Number: [id number] Visit Date: 05/19/2016 16:38:31 Attending Provider: CRISTOFER RIBERA MD Primary Care Provider: PCP, ELSEWHERE AMALIAPRETTY FRANCISCO MENDOZA has been given the following list of medications: Your Medications It is important to take your medications as directed. Use a pill box or chart to help remind you to take your medications. Please let your doctor or nurse know if you have problems taking your medications. Medication/Strength How to Take Indications/Special Instructions/Comments/Notes for Patient Medication Changes/Routing atenolol (atenolol 25 mg oral tablet) 1 Tablet(s), Oral, once a day glucosamine-chondroitin (Osteo Bi-Flex Double Strength) See Instructions one tab daily multivitamin with minerals (Centrum Silver) Oral, once a day multivitamin with minerals (Vitamin D with Minerals oral tablet) 1 Tablet(s), Oral, once a day predniSONE (predniSONE 10 mg oral tablet) 1 Tablet(s), Oral, once a day 40mg/d for 7 days then taperby 10mg q3days with 10mg/day last 3 days New Routed to [address] [address] pseudoephedrine (Sudafed) See Instructions Taking one tab daily rosuvastatin (Crestor 20 mg oral tablet) 1 Tablet(s), Oral, once a day (at bedtime) Stop Taking the Following Medications: Medication list as of 05-19-16 16:38 Attention: If you have any medications at home that are not on this list, DO NOT take them until youcontact your provider for clarification. Give a copy of your medication list to your primary care provider. Update your medication list any time medications or doses are changed and carry your medication list at all times in case of emergency. Electronically Signed By: CRISTOFER RIBERA MD Signed On:19-MAY-2016 16:38:29 Additional Information: Source: [facility] POWERCHART Document Id: [id number] Miscellaneous - Milly Robertson, L.P.N. - 05/19/2016 4:19 PM CDT Adult Territory Development Manager Intake/History Adult Territory Development Manager Intake/History Entered On: 05/19/2016 16:24 CDT Performed On: 05/19/2016 16:19 CDT by MILLY ROBERTSON LPN Intake Chief Complaint : Referred by physician at [facility] for hearing loss. Onset of Symptoms : about 5 weeks Temperature Core : 37.2 DegC(Converted to: 99.0 DegF) Peripheral Pulse Rate : 76 /min Systolic Blood Pressure : 128 mmHg Diastolic Blood Pressure : 63 mmHg NIBP Mean : 85 mmHg BP Location : Left upper extremity Blood Pressure Cuff Size : Regular MILLY ROBERTSON LPN - 05/19/2016 16:19 CDT General Info Information Given By : Patient Languages : Kyrgyz Is Patient Female and 13-50 no hysterectomy : No MILLY ROBERTSON LPN - 05/19/2016 16:19 CDT Subjective Pain Symptoms : No MILLY ROBERTSON LPN - 05/19/2016 16:19 CDT Dependent Habits Smoking Status : Never smoker Tobacco 2A : No Tobacco Use/Currently Using : No Tobacco Use/Last 30 Days : No Tobacco Use/Last 12 months : No Alcohol Use : Yes MILLY ROBERTSON LPN - 05/19/2016 16:19 CDT Source: [facility] [employer] Document Id: [id number] CDT!24 documented in this encounter Plan of Treatment Upcoming Encounters Date Type Specialty Care Team Description 10/06/2022 Comprehensive Visit Obstetrics and Gil Bailey M.D. Gynecology [address] [place] [phone] (Wo rk) 02/07/2023 Office Visit Family Medicine Olga Dixon M.D. [address] [place] [phone] (Wo rk) documented as of this encounter Visit Diagnoses Not on filedocumented in this encounter
--- OUTSIDE RECORDS SUMMARY | 2022-10-05 14:06 | XMS_ITS | Encounter Summary ---
:1950 Author Organization [facility] Address [address] [place] [address] Care Team Providers Name Role Phone Olga Dixon M.D. Primary Care Provider Reason for Referral Outpatient (Routine) - Closed Specialty Diagnoses / Procedures Referred By Contact Refer red To Contact Diagnoses Dizziness Olga Dixon M.D. [facility] Region Procedures Echo Transthoracic (TTE) [address] [place] [address] Referral ID Status Reason Start Date Expiration Date Visits Requ ested Visits Authorized [id number] Closed 04/14/2022 04/14/2023 1 1 Reason for Visit Outpatient (Routine) - Closed Specialty Diagnoses / Procedures Referred By Contact Refer red To Contact Diagnoses Dizziness Olga Dixon M.D. [facility] Procedures Echo Transthoracic (TTE) [address] [place] [address] Referral ID Status Reason Start Date Expiration Date Visits Requ ested Visits Authorized [id number] Closed 04/14/2022 04/14/2023 1 1 Encounter Details Date Type Department Care Team Description 04/15/2022 Hospital Encounter Department of Olga Dixon Di zziness Cardiovascular Diseases Janette in [facility] chema [address] [facility], [place] [phone] Social History Tobacco Use Types Packs/Day Years [...] mouth 0 mg tablet once a week. fexofenadine (MELANY) Take 180 mg by mouth 0 180 mg tablet daily. glucosamine-chondroitin Take 1 capsule by 0 (GLUCOSAMINE-CHONDROITIN) mouth 3 (three) 500-400 mg per capsule times a day. losartan (COZAAR) 100 mg Take 1 tablet (100 90 tablet 3 04/14/2023 tablet mg total) by mouth daily. multivit-mins Take by mouth. 0 no.63/iron/folic (M-VIT ORAL) atenoloL (TENORMIN) 25 mg Take 1 tablet by 0 11/2904/22/2022 tablet mouth every evening. omeprazole (PriLOSEC) 20 0 01/25/2022 04/22/[address] capsule documented as of this encounter Miscellaneous Notes Result Encounter Note - Olga Dixon M.D. - 04/30/2022 9:28 AM CDT Called patient and notified of results. documented in this encounter Plan of Treatment Upcoming Encounters Date Type Specialty Care Team Description 10/06/2022 Comprehensive Visit Obstetrics and Gil Bailey M.D. Gynecology [address] [place] [address] (Abbe johnson) 02/07/2023 Office Visit Family Medicine Olga Dixon M.D. [address] [place] [phone] (Wo rk) documented as of this encounter Procedures Procedure Name Priority Date/Time Associated Diagnosis Comme nts (TTE) 2D ECHO Routine 04/15/2022 1:27 PM Dizziness Results for this DOPPLER COLOR CDT procedure are in the results section. documented in this encounter Results (TTE) 2D ECHO DOPPLER COLOR (04/15/2022 1:27 PM CDT) Specimen (Source) Anatomical Location Collection Method / Collectio n Time Received Time / Laterality Volume Narrative CV EIMS - 04/27/2022 1:06 PM CDT This study was read by an external provider and scanned to the patient's chart. Please launch the scanned documen t link to view the full report. Olga Dixon M.D. CV ECHO PROCEDURES Performing Organization Address City/State/ZIP Code Phon e Number CV EIMS CV EIMS NA documented in this encounter Visit Diagnoses Diagnosis Dizziness documented in this encounter Care Teams Dispensing Optician Apprentice Relationship Specialty Start Date End Date Olga Dixon M.D. PCP - General Family Medicine 04/14/[address] [place] [phone] documented as of this encounter
--- OUTSIDE RECORDS SUMMARY | 2022-10-05 14:06 | XMS_ITS | Encounter Summary ---
:1950 Author Organization [facility] Address [address] [place] [address] Care Team Providers Name Role Phone Olga Dixon M.D. Primary Care Provider Reason for Referral Outpatient (Routine) - Closed Specialty Diagnoses / Procedures Referred By Contact Refer red To Contact Family Medicine Olga Dixon M .D. [address] [address] Referral ID Status Reason Start Date Expiration Date Visits Requ ested Visits Authorized [id number] Closed 04/30/2022 04/30/2023 1 1 Outpatient (Routine) - Authorized Specialty Diagnoses / Procedures Referred By Contact Refer red To Contact Diagnoses Tricuspid Valve Disorder Acquired Olga Dixon M.D. [facility] Procedures Echo Transthoracic (TTE) [address] [place] [phone] Referral ID Status Reason Start Date Expiration Date Visits V isits Requested Authorized [id number] Authorized 04/30/2022 04/30/2023 1 1 Reason for Visit Reason Comments Follow-up Encounter Details Date Type Department Care Team Description 04/30/2022 Office Visit Department of Family Olga Dixon T ricuspid Valve Disorder Acquired (Primary Dx); Medicine in M.D. Hypertension Essential Primary; [place], [address] Other Secondary Pulmonary Hypertension ( HCC) [facility] [address] [address] [place], [place] [phone] (Wo rk) [id number] [phone] Social History Tobacco Use Types Packs/Day Years Used Date Smoking Tobacco: Former Smokeless Tobacco: Never Alcohol Use Standard Drinks/Week Comments Yes 0 (1 standard drink = 0.6 oz pure alcoho l) Sex Assigned at Date Recorded Female 09/08/2022 3:36 PM CDT documented as of this encounter Last Filed Vital Signs Vital Sign Reading Time Taken Comments Blood Pressure 136/69 04/30/2022 8:50 AM CDT Pulse 68 04/30/2022 8:50 AM CDT Temperature - - Respiratory Rate - - Oxygen Saturation 99% 04/30/2022 8:50 AM CDT Inhaled Oxygen Concentration - - Weight 66.2 kg (146 lb) 04/30/2022 8:50 AM CDT Height 160 cm (5' 2.99) 04/30/2022 8:50 AM CDT Body Mass Index 25.87 04/30/2022 8:50 AM CDT documented in this encounter Progress Notes Olga Dixon M.D. - 04/30/2022 9:00 AM CDT Images from the original note were not included. SUBJECTIVE CHIEF COMPLAINT / REASON FOR VISIT Karlene Patino is a 71 y.o. female who presents for evaluation of Follow-up. HISTORY OF PRESENT ILLNESS Patient is here today for follow-up. She states that she is feeling much improved. She has now had no further dizziness or lightheadedness. Her energy levels improved. She is having no shortness of breath or chest pain. No edema. She has noticed increasing her varicose veins in her legs that she likely look at but she is not having any real problems or pain related to those. No calf tenderness. No rashes. No cough. No dyspnea exertion or orthopnea. No chest pain or palpitations. She is a retired smoker. Her blood pressures has been much better controlled. The following portions of the patient's history were reviewed and updated as appropriate: allergies,current medications, family history, medical history, social history and problem list. PROBLEM LIST: Patient Active Problem List Diagnosis ??? Other Secondary Pulmonary Hypertension (HCC) ??? Hypertension Essential Primary ??? Tricuspid Valve Disorder Acquired Current Outpatient Medications: ??? alendronate (FOSAMAX) 70 mg tablet, , Disp: , Rfl: ??? atenoloL (TENORMIN) 25 mg tablet, TAKE 1 TABLET BY MOUTH DAILY, Disp: 90 tablet, Rfl: 3 ??? fexofenadine (MELANY) 180 mg tablet, Take 180 mg by mouth daily., Disp: , Rfl: ??? glucosamine-chondroitin (GLUCOSAMINE-CHONDROITIN) 500-400 mg per capsule, Take 1 capsule by mouth 3 (three) times a day., Disp: , Rfl: ??? losartan (COZAAR) 100 mg tablet, Take 1 tablet (100 mg total) by mouth daily., Disp: 90 tablet, Rfl: 3 ??? multivit-mins no.63/iron/folic (M-VIT ORAL), Take by mouth., Disp: , Rfl: ??? omeprazole (PriLOSEC) [address] capsule, Take 1 capsule (20 mg total) by mouth every morning before breakfast., Disp: 90 capsule, Rfl: 3 OBJECTIVE BP 136/69 (Cuff Size: Regular) Pulse 68 Ht 160 cm Wt 66.2 kg SpO2 99% BMI 25.87 kg/m?? PHYSICAL EXAM General: Patient is in no apparent distress and is alert and oriented. Mood and affect are bright and engaging. Patient is very pleasant and is articulate and a good historian. HEENT: TMs are clear. Nares are clear. Posterior pharynx clear. Teeth in good repair. No scleral icterus is noted. Pupils equal, round, react to light. Neck: Supple without lymphadenopathy, JVD, carotid bruits or thyromegaly. Lungs: Clear to auscultation bilaterally. Heart: Regular rate and rhythm with loud systolic murmur. ASSESSMENT / PLAN #1 Tricuspid Valve Disorder Acquired Patient has moderate to severe regurg. She also has some mild mitral valve disease. She has pulmonary hypertension related to her tricuspid valve disorder. I ordered an echocardiogram for follow-up in a year. She has no symptomatology so I opted not to send her to Cardiology at this time as she is still able to manage her life with physical activity and of course now the dizziness is resolved and herblood pressure is better controlled and she is not having any dyspnea exertion. She will let me knowif symptoms progress or change otherwise will follow it up in the year to see if it remains stable. - Echo Transthoracic (TTE); Future; Expected date: 04/30/2023 #2 Hypertension Essential Primary See above. No changes in medications at this time #3 Other Secondary Pulmonary Hypertension (HCC) See above Other orders - Basic Metabolic Panel - Family Medicine office visit (clinic); Future; Expected date: 07/31/2022 documented in this encounter Plan of Treatment Upcoming Encounters Date Type Specialty Care Team Description 10/06/2022 Comprehensive Visit Obstetrics and Gil Bailey M.D. Gynecology [address] [place] [phone] (Wo rk) 02/07/2023 Office Visit Family Medicine Olga Dixon M.D. [address] [place] [phone] (Wo rk) Scheduled Orders Name Type Priority Associated Order Schedule Diagnoses Echo Transthoracic Echocardiography Routine Tricuspid Valve Ex pected: (TTE) Disorder Acquired 04/30/2023 (Approximate), Expires: 07/31/2023 Scheduled Referrals Name Type Priority Associated Diagnoses Order [facility] Family Medicine Outpatient Referral Routine Expec mary kate: office visit 07/31/2022 (clinic) (Approximate), Expires: 07/31/2023 documented as of this encounter Procedures Procedure Name Priority Date/Time Associated Diagnosis Comme nts BASIC METABOLIC Routine 04/30/2022 9:23 AM Tricuspid Valve Res ults for this PANEL, S/P CDT Disorder Acquire d procedure are in Hypertension the results Essential Primary section. documented in this encounter Results (ABNORMAL) Basic Metabolic Panel (04/30/2022 9:23 AM CDT) P athologist Signature Potassium, P 4.1 3.6 - 5.2 04/30/2022 [facility] mmol/L 12:20 PM CDT Sodium, P 134 (L) 135 - 145 04/30/2022 [facility] mmol/L 12:20 PM CDT Chloride, P 99 98 - 107 04/30/2022 [facility] mmol/L 12:20 PM CDT Bicarbonate, P 26 22 - 29 04/30/2022 [facility] mmol/L 12:20 PM CDT Anion Gap, P 9 7 - 15 04/30/2022 [facility] 12:20 PM CDT BUN (Blood Urea 16 6 - 21 04/30/2022 [facility] Nitrogen), P mg/dL 12:20 PM CDT Creatinine 0.93 0.59 - 04/30/2022 [facility] 1.04 mg/dL 12:20 PM CDT eGFR-Black/Afri 71 >=60 04/30/2022 [facility] can Tajik mL/min/BSA 12:20 PM CDT Comment: ----ADDITIONAL INFORMATION---- Estimated GFR calculated using the 2009 CKD_EPI creatinine equation. eGFR Non-Black/ 62 >=60 mL/min/BSA 04/30/2022 12:20 PM CDT [facility] Comment: ----ADDITIONAL INFORMATION---- Estimated GFR calculated using the 2009 CKD_EPI creatinine equation. Calcium, Total, P 9.1 8.8 - 10.2 mg/dL 04/30/2022 12:2 0 PM CDT [facility] Glucose, P 87 70 - 140 mg/dL 04/30/2022 12:20 PM CDT [facility] Specimen Anatomical Collection Method Collection Time Receive d Time (Source) Location / / Volume Laterality Blood (Blood, 04/30/2022 9:23 AM 04/30/20 22 Venous) CDT 11:56 AM CDT Olga Dixon M.D. LAB BLOOD ADD-ON Performing Organization Address City/State/ZIP Code Phon e Number [facility]- [address] [place], [place] [address] [place] [address] [place] [address] [facility] [address] documented in this encounter Visit Diagnoses Diagnosis Tricuspid Valve Disorder Acquired - Prim jaden Hypertension Essential Primary Other Secondary Pulmonary Hypertension ( HCC) documented in this encounter Care Teams Trim Mechanic Relationship Specialty Start Date End Date Olga Dixon M.D. PCP - General Family Medicine 04/14/22 [address] [place] [phone] documented as of this encounter
--- OUTSIDE RECORDS SUMMARY | 2022-10-05 14:06 | XMS_ITS | Encounter Summary ---
:1950 Author Organization [facility] Address [address] [place] [address] Care Team Providers Name Role Phone Unavailable Primary Care Provider Unavailable Encounter Details Date Type Department Care Team Description 05/19/2016 Hospital Encounter HX [facility] AUDIOLOGY Melodie Rivera Au.D. Social History Tobacco Use Types Packs/Day Years Used Date Smoking Tobacco: Never Assessed Sex Assigned at Date Recorded Female 09/08/2022 3:36 PM CDT documented as of this encounter Medications at Time of Discharge Medication Sig Dispensed Refills Start Date End Date atenoloL (TENORMIN) 25 mg Take 1 tablet by 0 11/2904/22/2022 tablet mouth every evening. documented as of this encounter Consult Notes Soraya Rivera Au.D. - 05/19/2016 3:06 PM CDT [id number] CHIEF COMPLAINT/REASON FOR VISIT Decreased hearing and tinnitus. HISTORY OF PRESENT ILLNESS A 65-year-old female seen today for audiological evaluation requested by Dr. Chen. Karlene reports that about a month ago she experienced a fairly sudden decline in hearing in her left ear along with tinnitus. Initially she did have some imbalance issues, however those have generally resolved. Denies any current otalgia, otorrhea. PHYSICAL EXAMINATION ENT: An otoscopic examination revealed generally clear ear canals prior to testing. DIAGNOSTICS Audiometry today was consistent with borderline mild rising to normal hearing in the right ear and agenerally flat mild to moderate sensorineural hearing loss in the left ear. Word recognition abilityin quiet remained intact, symmetrical, and good. Tympanometry was consistent with normal middle ear pressure, equivalent volume, and static admittance in both ears. IMPRESSION/REPORT/PLAN Likely sudden sensorineural hearing loss, left, labyrinthitis. PLAN: Patient will follow with Dr. Chen this afternoon. Further medical management as recommended. Lolita Brand/tania Electronically Signed By: SORAYA RIVERA On: 05/26/2016 02:20 PM Source: [facility] [id number] Document Id: [id number] documented in this encounter Plan of Treatment Upcoming Encounters Date Type Specialty Care Team Description 10/06/2022 Comprehensive Visit Obstetrics and Gil Bailey M.D. Gynecology [address] [place] [phone] (Abbe johnson) 02/07/2023 Office Visit Family Medicine Olga Dixon M.D. [address] [place] [phone] (Abbe johnson) documented as of this encounter Visit Diagnoses Not on filedocumented in this encounter
--- OUTSIDE RECORDS SUMMARY | 2022-10-05 14:06 | XMS_ITS | Encounter Summary ---
:1950 Author Organization [facility] Address [address] [place] [address] Care Team Providers Name Role Phone Unavailable Primary Care Provider Unavailable Encounter Details Date Type Department Care Team Description 12/26/2013 - Hospital Encounter HX RST UNIT 5-4 12/28/2013 GYNECOLOGY Social History Tobacco Use Types Packs/Day Years Used Date Smoking Tobacco: Never Assessed Sex Assigned at Date Recorded Female 09/08/2022 3:36 PM CDT documented as of this encounter Last Filed Vital Signs Vital Sign Reading Time Taken Comments Blood Pressure 109/50 12/28/2013 8:19 AM NIBP - Value from STEAM TRAIN DRIVER [employer]. Pulse 71 12/28/2013 8:19 AM Value from Ch [employer]. STEAM TRAIN DRIVER Temperature - - Respiratory Rate 18 12/28/2013 8:19 AM Value from C [employer]art[employer]. STEAM TRAIN DRIVER Oxygen Saturation - - Inhaled Oxygen - - Concentration Weight 72.1 kg (158 lb 15.2 12/28/2013 12:22 oz) AM STEAM TRAIN DRIVER Height 160 cm (5' 2.99) 12/26/2013 8:55 AM Vital si gn result STEAM TRAIN DRIVER from CDM. Body Mass Index 28.16 12/26/2013 1:14 PM STEAM TRAIN DRIVER documented in this encounter Medications at Time of Discharge Medication Sig Dispensed Refills Start Date End Date atenoloL (TENORMIN) 25 mg Take 1 tablet by 0 11/2904/22/2022 tablet mouth every evening. documented as of this encounter Plan of Treatment Upcoming Encounters Date Type Specialty Care Team Description 10/06/2022 Comprehensive Visit Obstetrics and Gil Bailey M.D. Gynecology [address] [place] [address] (Wo rk) 02/07/2023 Office Visit Family Medicine Olga Dixon M.D. [address] [place] [address] (Wo rk) documented as of this encounter Procedures Procedure Name Priority Date/Time Associated Comments Diagnosis ELECTROLYTE (CHEM 4) Routine 12/27/2013 1:55 AM R esults for this PANEL, S/P STEAM TRAIN DRIVER procedure are i n the results section. CBC WITHOUT Routine 12/27/2013 1:55 AM Results f or this DIFFERENTIAL, B STEAM TRAIN DRIVER procedure ar e in the results section. HEMOGLOBIN (HGB), Routine 12/26/2013 7:52 PM Resu lts for this POCT, B STEAM TRAIN DRIVER procedure are i n the results section. DX ABDOMEN 1 VIEW Routine 12/26/2013 7:06 PM Resu lts for this STEAM TRAIN DRIVER procedure are i n the results section. HEMOGLOBIN, B Routine 12/26/2013 5:41 PM Results for this STEAM TRAIN DRIVER procedure are i n the results section. HXGENERAL PATHOLOGY Routine 12/26/2013 2:35 PM Re sults for this REPORT STEAM TRAIN DRIVER procedure are i n the results section. ABORH, RBC Routine 12/26/2013 8:30 AM Results f or this STEAM TRAIN DRIVER procedure are i n the results section. ANTIBODY SCREEN, B Routine 12/26/2013 8:30 AM Res ults for this STEAM TRAIN DRIVER procedure are i n the results section. documented in this encounter Results (ABNORMAL) Electrolyte (Chem 4) Panel (12/27/2013 1:55 AM STEAM TRAIN DRIVER) [facility] Method Time Signature Sodium, S 137 135 - 145 [facility] MMOL/L [facility] [place] Potassium, S 4.4 3.6 - 5.2 [facility] [place] eGFR-Black/Afri >60 >60 [facility] can [place] ML/MIN/BS LABORATORIES - A [place] BUN (Blood Urea 14 6 - 21 [facility] Nitrogen), S MG/DL [facility] [place] Chloride, S 102 100 - 108 [facility] MMOL[facility] HX Bicarbonate, 23 22 - 29 [facility] P/S MMOL/L [facility] [place] Creatinine 0.6 0.6 - 1.1 [facility] MG/DL [facility] [place] eGFR >60 >60 [facility] Non-Black/Afric ML/MIN/BS LABORATORIES - an [place] A [place] Anion Gap 12 7 - 15 [facility] [place] Glucose, S 178 (H) 70 - 140 [facility] MG/DL [facility] [place] Specimen Anatomical Collection Method Collection Time Receive d Time (Source) Location / / Volume Laterality 12/27/2013 1:55 AM 4 1:55 STEAM TRAIN DRIVER AM STEAM TRAIN DRIVER Bessy Munguia M.D. LAB BLOOD ADD-ON Performing Organization Address City/[facility] Phon e Number [facility] - [address] [place], [place] [address] [place] (ABNORMAL) CBC without Differential (12/27/2013 1:55 AM STEAM TRAIN DRIVER) [facility] Method Time Signature Erythrocytes 2.98 (L) 3.90 - [facility] 5.03 LABORATORIES - X10(12)/L [place] MCV 89.3 81.6 - [facility] 98.3 FL [facility] [place] RBC Distrib 14.0 11.9 - [facility] Width 15.5 % [facility] [place] Platelet Count 239 150 - 450 [facility] X10(9)/L [facility] [place] Hemoglobin 9.0 (L) 12.0 - [facility] 15.5 G/DL [facility] [place] Hematocrit 26.6 (L) 34.9 - [facility] 44.5 % [facility] [place] Leukocytes 12.2 (H) 3.5 - [facility] 10.5 LABORATORIES - X10(9)/L [place] Specimen Anatomical Collection Method Collection Time Receive d Time (Source) Location / / Volume Laterality 12/27/2013 1:55 AM 4 1:55 STEAM TRAIN DRIVER AM STEAM TRAIN DRIVER Bessy Munguia M.D. LAB BLOOD ADD-ON Performing Organization Address City/State/[facility] Code Phon e Number [facility] - [address] [place], [place] [address] [place] (ABNORMAL) Hemoglobin (HGB), POCT (12/26/2013 7:52 PM STEAM TRAIN DRIVER) [facility] Method Time Signature Hemoglobin, B 9.4 (L) 12.0 - [facility] 15.5 G/DL [facility] [place] Specimen Anatomical Collection Method Collection Time Receive d Time (Source) Location / / Volume Laterality 12/26/2013 7:52 PM 4 7:52 STEAM TRAIN DRIVER PM STEAM TRAIN DRIVER Barbara Coombs M.D. LAB POCT ORDERABLES - DEVICE Performing Organization Address City/State/ZIP Code Phon e Number [facility] - [address] [place], [place] [address] [place] DX Abdomen 1 View (12/26/2013 7:06 PM STEAM TRAIN DRIVER) Anatomical Region Laterality Modality Abdomen N/A Radiographic Imaging Specimen (Source) Anatomical Collection Method Collection Time Re ceived Time Location / / Volume Laterality 12/26/2013 7:06 PM STEAM TRAIN DRIVER Narrative 12/26/2013 7:20 PM STEAM TRAIN DRIVER 26-Dec-2013 19:06:00 ??Exam: Post OP Abdomen Indications: gynecologic vaginal hystere ctomy ORIGINAL REPORT - 26-Dec-2013 19:09:00 Gas throughout loops of small bowel and colon in a nonobstructive pattern. Negative for PO purposes. Electronically signed by: ?? Susana Ballard MD [phone] 26-Dec-2013 19:09 I have reviewed the films/images and agr ee with the above interpretation. Electronically signed by: ?? Iggy Acosta MD. ??[phone] 26-Dec-2013 19: 20 Procedure Note Morgan Acosta M.D. - 02/24/2018Formatti ng of this note might be different from the original. 26-Dec-2013 19:06:00 Exam: Post OP Abdom en Indications: gynecologic vaginal hystere ctomy ORIGINAL REPORT - 26-Dec-2013 19:09:00 Gas throughout loops of small bowel and colon in a nonobstructive pattern. Negative for PO purposes. Electronically signed by: Susana Ballard MD [phone] 26-Dec-2013 19:09 I have reviewed the films/images and agr ee with the above interpretation. Electronically signed by: Iggy Acosta MD. [phone] 26-Dec-2013 19:20 Yuliya Chavez M.D. IMG DIAGNOSTIC IMAGING PROCE DURES (ABNORMAL) Hemoglobin (12/26/2013 5:41 PM STEAM TRAIN DRIVER) P athologist Signature Hb 9.2 (L) 12.0 - [facility] 15.5 G/DL [facility] [place] Comment: Drawn in OR Specimen Anatomical Collection Method Collection Time Receive d Time (Source) Location / / Volume Laterality 12/26/2013 5:41 PM 4 5:41 STEAM TRAIN DRIVER PM STEAM TRAIN DRIVER Narrative [facility] - 12/26/2013 5:50 PM STEAM TRAIN DRIVER Drawn in OR Joel Bahena M.D. LAB BLOOD ADD-ON Performing Organization Address City/State/ZIP Code Phon e Number [facility] - [address] [place], [place] [address] [place] Hx general Pathology Report (12/26/2013 2:35 PM STEAM TRAIN DRIVER) Specimen Anatomical Collection Method Collection Time Receive d Time (Source) Location / / Volume Laterality 12/26/2013 2:35 PM 4 2:35 STEAM TRAIN DRIVER PM STEAM TRAIN DRIVER Narrative [facility] - 12/26/2013 2:35 PM STEAM TRAIN DRIVER ??12/26/2013 Surgical Pathology ?([id number]) ??REVISED REPORT (Addendum/Procedure in cluded) ?? Requested By: Camilo Garner ??[phone] ? Additional Physician: ??Paul wilson M.D. [id number] ? SLIDE DISPOSITION: ? DIAGNOSIS: ?? A. 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 ??Fallopian tube without diagnostic abnormality. ?? B. ??Fallopian tube and ovary, left, sa lpingo-oophorectomy: ??Ovary with functional cysts. ??Fallopian tube with paratubal cysts. ?? C. ??Uterus, hysterectomy: ??Uterus wit h benign endometrial polyps. ?? Weakly proliferative endometrium. ??Cer vix without diagnostic abnormality. ?? D. ??Adnexa, right, excision: ??Benign broad ligament with fragment of ovarian tissue without diagnostic abnor mality. ?? This final pathology report is based on the gross/macroscopic examination and the frozen section hist ologic evaluation of the specimen(s). A revised report will be i ssued to document the final interpretation after review of the Alber toxylin and Eosin (H&E) permanent sections. ?? Participated in interpretation: ??Edie Gallagher M.D. [phone] ? 12/27/2013 09:25 Interpreted by: John Patricio M.D. [phone] Report electronically signed by John Patricio M.D. Transcribed by: andrew 12/26/2013 19:38:25 ?ADDENDUM: Frozen section interpretation has been confirmed by Hematoxylin and Eosin (H&E) permanent section review. ? Transcribed by: ??[email or web address] ??12/27/2013 10: 17:21 ? Signed by John Patricio M.D. 2013 11:48:14 ? GROSS DESCRIPTION: A. ??Received fresh labeled right fall opian tube and ovary is a 1.5 gram, 2.0 x 1.3 x 0.5 cm ovary with an 8.9 x 0.5 cm fallopian tube. ?? The ovary has a smooth outer surface an d solid cut surface. ??The fallopian tube is unremarkable. ??There is a 7.0 x 4.0 cm smooth-walled, already opened cyst arou nd the fallopian tube. ??No vegetation identified. ??Landscape [employer] Internship sections are submitted. ?? Grossed by ND. ?? B. ??Received fresh labeled left fallo pian tube and ovary is a 5.9 gram, 2.2 x 0.9 x 0.7 cm ovary with a 5 .9 x 0.6 cm fallopian tube. ?? The ovary has a smooth outer surface an d solid cut surface. ??The fallopian tube has multiple paratubal c ysts. ??Landscape Maintenance Internship sections are submitted. ??Grossed by EM X. ?? C. ??Received fresh labeled uterus is a 40.0 gram uterus and cervix without attached bilateral fallopian tu bes and ovaries. ??The uterine serosa is smooth. ??The endometrium is unremarkable. ??There are no leiomyomata. ??There is a 0.8 x 0.6 x 0 .2 cm endometrial polyp in the posterior fundus. ??Landscape Maintenance Internship sect ions are submitted. ??Grossed by HL/EMX. ?? D. ??Received fresh labeled portion of right adnexa is a 2.5 x 2.0 x 0.8 cm portion of moreira-red, focally he morrhagic soft tissue. ??All submitted. ??Grossed by JRL. BLOCK SUMMARY: Part A: ??Right fallopian tube and ovar y ?1 Right fimbria and tube ?2 Cyst-1 ?3 Right ovary-1 ?? Part B: ??Left ovary and fallopian tube ?1 Left fallopian tube ?2 Left ovary ?? Part C: ??Uterus ?1 Cervix ?2 Endometrial polyp ?? Part D: ??Portion right adnexa ?1 Portion Rt adnexa-1 ?2 Portion Rt adnexa-2 ?3 Portion Rt adnexa-3 ? Procedure Note 02/18/2018 12/26/2013 Surgical Pathology ([id number] ) REVISED REPORT (Addendum/Procedure incl uded) Requested By: Camilo Garner [phone] Additional Physician: Paul vega M.D. [id number] SLIDE DISPOSITION: DIAGNOSIS: A. Fallopian tube and ovary, right, timothy pingo-oophorectomy: Serous cystadenoma (7.0 x 4.0 cm). Fallopian t ube without diagnostic abnormality. B. Fallopian tube and ovary, left, salp ingo-oophorectomy: Ovary with functional cysts. Fallopian tube w ith paratubal cysts. C. Uterus, hysterectomy: Uterus with be nign endometrial polyps. Weakly proliferative endometrium. Cervi x without diagnostic abnormality. D. Adnexa, right, excision: Benign broa d ligament with fragment of ovarian tissue without diagnostic abnor mality. This final pathology report is based on the gross/macroscopic examination and the frozen section hist ologic evaluation of the specimen(s). A revised report will be i ssued to document the final interpretation after review of the Alber toxylin and Eosin (H&E) permanent sections. Participated in interpretation: Edie story M.D. [phone] 12/27/2013 09:25 Interpreted by: John Patricio M.D. [phone] Report electronically signed by John Patricio M.D. Transcribed by: [email or web address] 12/26/2013 19:38:25 ADDENDUM: Frozen section interpretation has been confirmed by Hematoxylin and Eosin (H&E) permanent section review. Transcribed by: [email or web address] 12/27/2013 10:17:2 1 Signed by John Patricio M.D. 2013 11:48:14 GROSS DESCRIPTION: A. Received fresh labeled right fallop jyotsna tube and ovary is a 1.5 gram, 2.0 x 1.3 x 0.5 cm ovary with an 8.9 x 0.5 cm fallopian tube. The ovary has a smooth outer surface an d solid cut surface. The fallopian tube is unremarkable. There i s a 7.0 x 4.0 cm smooth-walled, already opened cyst arou nd the fallopian tube. No vegetation identified. Landscape [employer]ship s ections are submitted. Grossed by ND. B. Received fresh labeled left fallopi an tube and ovary is a 5.9 gram, 2.2 x 0.9 x 0.7 cm ovary with a 5 .9 x 0.6 cm fallopian tube. The ovary has a smooth outer surface an d solid cut surface. The fallopian tube has multiple paratubal c ysts. Landscape Maintenance Internship sections are submitted. Grossed by EMX. C. Received fresh labeled uterus is a 40.0 gram uterus and cervix without attached bilateral fallopian tu bes and ovaries. The uterine serosa is smooth. The endometrium is un remarkable. There are no leiomyomata. There is a 0.8 x 0.6 x 0.2 cm endometrial polyp in the posterior fundus. Landscape Maintenance Internship sectio ns are submitted. Grossed by HL/EMX. D. Received fresh labeled portion of r ight adnexa is a 2.5 x 2.0 x 0.8 cm portion of moreira-red, focally he morrhagic soft tissue. All submitted. Grossed by JRL. BLOCK SUMMARY: Part A: Right fallopian tube and ovary 1 Right fimbria and tube 2 Cyst-1 3 Right ovary-1 Part B: Left ovary and fallopian tube 1 Left fallopian tube 2 Left ovary Part C: Uterus 1 Cervix 2 Endometrial polyp Part D: Portion right adnexa 1 Portion Rt adnexa-1 2 Portion Rt adnexa-2 3 Portion Rt adnexa-3 Yuliya Chavez M.D. LAB PATHOLOGY/CYTOLOGY ORDER CATHERINE Performing Organization Address City/[facility] Code Phon e Number [facility] - [address] [place] [address] [place] Antibody Screen, RBC (12/26/2013 8:30 AM STEAM TRAIN DRIVER) Patholo gist Method Time Signature Antibody Negative [facility] Screen [facility] Specimen (Source) Anatomical Collection Method Collection Time Re ceived Time Location / / Volume Laterality 12/26/2013 8:30 AM STEAM TRAIN DRIVER Historical Provider LAB BLOOD BANK TEST ORDERABL ES Performing Organization Address [facility] Phon e Number [facility] - [address] [place] [address] [place] ABORh, RBC (12/26/2013 8:30 AM STEAM TRAIN DRIVER) P athologist Signature HXABO/RH BLOOD A Pos [facility] TYPE LABORATORIES [facility] Specimen (Source) Anatomical Collection Method Collection Time Re ceived Time Location / / Volume Laterality 12/26/2013 8:30 AM STEAM TRAIN DRIVER Historical Provider LAB BLOOD BANK TEST ORDERABL ES Performing Organization Address [facility] Phon e Number [facility] - [address] [place] [address] [place] documented in this encounter Visit Diagnoses Not on filedocumented in this encounter
--- OUTSIDE RECORDS SUMMARY | 2022-10-05 14:06 | XMS_ITS | Encounter Summary ---
:1950 Author Organization [facility] Address [address] [place] [address] Care Team Providers Name Role Phone Unavailable Primary Care Provider Unavailable Encounter Details Date Type Department Care Team Description 07/20/2016 Hospital Encounter HX [facility] Oscar Ribera M.D. [address] [place], [place] [phone] (Wo rk) Social History Tobacco Use Types Packs/Day Years Used Date Smoking Tobacco: Never Assessed Sex Assigned at Date Recorded Female 09/08/2022 3:36 PM CDT documented as of this encounter Last Filed Vital Signs Vital Sign Reading Time Taken Comments Blood Pressure 112/72 07/20/2016 3:22 PM CDT Pulse 78 07/20/2016 3:22 PM CDT Temperature - - Respiratory Rate [...] encounter Progress Notes Cristofer Ribera M.D. - 07/20/2016 1:48 PM CDT ENT-SV HISTORY OF PRESENT ILLNESS Patient here for recheck of her left sudden hearing loss after prednisone taper. Repeat audiologic evaluation reveals some improvement. Discussed findings with patient. Discussed improvement. Would advise continued observation. We will see again in followup in 2 months with repeat audiologic evaluation. IMPRESSION/REPORT/PLAN 1. Asymmetric, sudden sensorineural hearing loss, left ear. 2. Tinnitus, left ear. PLAN: As dictated. Cristofer Ribera M.D./tania Electronically Signed By: CRISTOFER RIBERA MD On: 08/12/2016 02:14 PM Modified by and Electronically Signed by: CRISTOFER RIBERA MD On: 08/12/2016 02:14 PM Source: [facility] MHSDOLBEYNONRADSYS Document Id: [id number] documented in this encounter Miscellaneous Notes Miscellaneous - Cristofer Ribera M.D. - 07/20/2016 3:32 PM CDT Ambulatory Patient Summary [facility] [address] [place] [phone] Visit Information Name: FRANCISCO PATINO [facility] Number: [id number] Current Date: 07/20/2016 15:32:19 Physicians Attending Provider: CRISTOFER RIBERA MD Primary Care Provider: PCP, ELSEWHERE FRANCICSO PATINO has been given the following list [...] tablet) 1 Tablet(s), Oral, once a day atorvastatin (atorvastatin 40 mg oral tablet) 1 Tablet(s), Oral, once [...] 10mg q3days with 10mg/day last 3 days pseudoephedrine (Sudafed) See Instructions Taking one tab daily Stop Taking the Following Medications: Medication list as of 07-20-16 15:32 Attention: If you have any medications at [...] Electronically Signed By: CRISTOFER RIBERA MD Signed On:20-JUL-2016 15:32:16 Your Allergies & Intolerances Substance Reaction Symptoms Category Comments methotrexate Drug amoxicillin Drug hydrocortisone rash Drug predniSONE Drug Claritin nosebleeds Drug Cefzil severe rash Drug Carafate Drug Arthrotec Drug ZyrTEC nosebleeds Drug CeleBREX Drug Your Problem List Problem Status Onset Comments [...] if you dont have one. Go to [email or web address] and click on Create Your Account. Then, follow the directions to complete the online form. Youll be asked for your [facility] number which you can find at the top of this document. Your Goals/Additional instructions: Source: [facility] POWERCHART Document Id: [id number] Miscellaneous - Cristofer Ribera M.D. - 07/20/2016 3:32 PM CDT Ambulatory Discharge Medication List [facility] [address] [place] [phone] Visit Information Name: FRANCISCO PATINO [facility] Number: [id number] Visit Date: 07/20/2016 15:32:18 Attending Provider: CRISTOFER RIBERA MD Primary Care Provider: PCP, FRANCISCO LEMUS has been given the following list of [...] tablet) 1 Tablet(s), Oral, once a day atorvastatin (atorvastatin 40 mg oral tablet) 1 Tablet(s), Oral, once [...] 10mg q3days with 10mg/day last 3 days pseudoephedrine (Sudafed) See Instructions Taking one tab daily Stop Taking the Following Medications: Medication list as of 07-20-16 15:32 Attention: If you have any medications at [...] Electronically Signed By: CRISTOFER RIBERA MD Signed On:20-JUL-2016 15:32:16 Additional Information: Source: [facility] POWERCHART Document Id: [id number] Miscellaneous - Batsheva De Los Santos, L.P.N. - 07/20/2016 3:22 PM CDT Adult Auto Polisher Intake/History Adult Auto Polisher Intake/History Entered On: 07/20/2016 15:25 CDT Performed On: 07/20/2016 15:22 CDT by BATSHEVA DE LOS SANTOS LPN Intake Chief Complaint : recheck audio-patient states has ringing in her ears Temperature Core : 36.3 DegC(Converted to: 97.3 DegF) (LOW) Peripheral Pulse Rate : 78 /min Systolic Blood Pressure : 112 mmHg Diastolic Blood Pressure : 72 mmHg NIBP Mean : 85 mmHg BP Location : Right upper extremity Blood Pressure Cuff Size : Regular BATSHEVA DE LOS SANTOS [facility] - 07/20/2016 15:22 CDT General Info Information Given By : Patient Preferred Communication Mode : Verbal Languages : Lao Is Patient Female and 12-50 no hysterectomy : No FILIBERTOBATSHEVA Rodolfo [facility] - 07/20/2016 15:22 CDT Subjective Pain Symptoms : No BATSHEVA DE LOS SANTOS Rodolfo [facility] - 07/20/2016 15:22 CDT Dependent Habits Exposure to Tobacco Smoke : Other: never Smoking Status : Never smoker Tobacco 2A : No Tobacco Use/Currently Using : No Tobacco Use/Last 30 Days : No Tobacco Use/Last 12 months : No Alcohol Use : Yes BATSHEVA DE LOS SANTOS [facility] - 07/20/2016 15:22 CDT Source: [employer] Document Id: [id number]!25 documented in this encounter Plan of Treatment Upcoming Encounters Date Type Specialty Care Team Description 10/06/2022 Comprehensive Visit Obstetrics and Gil Bailey M.D. Gynecology [address] [place] [phone] (Abbe johnson) 02/07/2023 Office Visit Family Medicine Olga Dixon M.D. [address] [place] [phone] (Wo elizabeth) documented as of this encounter Visit Diagnoses Not on filedocumented in this encounter
--- OUTSIDE RECORDS SUMMARY | 2022-10-05 14:06 | XMS_ITS | Encounter Summary ---
:1950 Author Organization [facility] Address [address] [place] [address] Care Team Providers Name Role Phone Unavailable Primary Care Provider Unavailable Encounter Details Date Type Department Care Team Description 09/27/2017 Orders Only Department of Cristofer Chen, Tinnitus Left Otorhinolaryngology in [place], [place] [address] [place] [phone] Social History Tobacco Use Types Packs/Day Years Used Date Smoking Tobacco: Never Sex Assigned at Date Recorded Female 09/08/2022 3:36 PM CDT documented as of this encounter Plan of Treatment Upcoming Encounters Date Type Specialty Care Team Description 10/06/2022 Comprehensive Visit Obstetrics and Gil Bailey M.D. Gynecology [address] [place] [phone] (Abbe rk) 02/07/2023 Office Visit Family Medicine Olga Dixon M.D. [address] [place] [phone] (Wo rk) documented as of this encounter Visit Diagnoses Diagnosis Tinnitus Left documented in this encounter
--- OUTSIDE RECORDS SUMMARY | 2022-10-05 14:06 | XMS_ITS | Encounter Summary ---
:1950 Author Organization [facility] Address [address] [place] [address] Care Team Providers Name Role Phone Olga Dixon M.D. Primary Care Provider Reason for Visit Reason Comments Med Refill Encounter Details Date Type Department Care Team Description 04/22/2022 Refill Department of [facility] Afsaneh Dixon M.D. Med Refill Medicine in [place], [address] [place] [address] [address] [facility] [place], [place] [phone] Social History Tobacco Use Types Packs/Day Years Used Date Smoking Tobacco: Former Smokeless Tobacco: Never Alcohol Use Standard Drinks/Week Comments Yes 0 (1 standard drink = 0.6 oz pure alcoho l) Sex Assigned at Date Recorded Female 09/08/2022 3:36 PM CDT documented as of this encounter Miscellaneous Notes Telephone Encounter - Crista Montes - 04/22/2022 9:36 AM CDT Recent Visits Date Type Provider Dept 04/14/22 [facility] [place] Showing recent visits within past 365 days with a meds authorizing provider and meeting all other requirements Future Appointments Date Type Provider Dept 04/30/22 Appointment Olga Dixon M.D. [facility] [place] Showing future appointments within next 90 days with a meds authorizing provider and meeting all other requirements documented in this encounter Plan of Treatment Upcoming Encounters Date Type Specialty Care Team Description 10/06/2022 Comprehensive Visit Obstetrics and Gil Bailey M.D. Gynecology [address] [place] [phone] (Wo rk) 02/07/2023 Office Visit Family Medicine Olga Dixon M.D. [address] [place] [address] [phone] (Wo rk) documented as of this encounter Visit Diagnoses Not on filedocumented in this encounter Care Teams Crime Scene Examiner Relationship Specialty Start Date End Date Olga Dixon M.D. PCP - General Family Medicine 04/14/[address] [place] [address] [phone] documented as of this encounter
--- OUTSIDE RECORDS SUMMARY | 2022-10-05 14:06 | XMS_ITS | Encounter Summary ---
:1950 Author Organization [facility] Address [address] [place] [address] Care Team Providers Name Role Phone Unavailable Primary Care Provider Unavailable Encounter Details Date Type Department Care Team Description 12/26/2013 Hospital Encounter HX NO MAPPING Social History Tobacco Use Types Packs/Day Years [...] Obstetrics and Gil Bailey M.D. Gynecology [address] [place] [phone] (Abbe johnson) 02/07/2023 Office Visit Family Medicine Olga Dixon M.D. [address] [place] [phone] (Abbe johnson) documented as of this encounter Visit Diagnoses Not on filedocumented in this encounter
--- OUTSIDE RECORDS SUMMARY | 2022-10-05 14:06 | XMS_ITS | Encounter Summary ---
:1950 Author Organization [facility] Address [address] [place] [address] Care Team Providers Name Role Phone Olga Dixon M.D. Primary Care Provider Reason for Referral Outpatient (Routine) - Closed Specialty Diagnoses / Procedures Referred By Contact Refer red To Contact Diagnoses Screening Mammogram Breast Cancer Olga Dixon M.D. [facility] Region Procedures BI Breast Screening Bilateral with Tomosynthesis [address] [place] [address] Referral ID Status Reason Start Date Expiration Date Visits Requ ested Visits Authorized [id number] Closed 06/01/2022 06/01/2023 1 1 Encounter Details Date Type Department Care Team Description 06/01/2022 Orders Only [facility] PCP Madelyn Bey ening Mammogram MNT S, D.O., M.B.A. Breast Cancer [address] [place] [address] (Wo rk) Social History Tobacco Use Types [...] Obstetrics and Gil Bailey M.D. Gynecology [address] [place] [address] (Abbe johnson) 02/07/2023 Office Visit Family Medicine Olga Dixon M.D. [address] [place] [address] [place] [phone] (Abbe johnson) documented as of this encounter Results BI Breast Screening Bilateral [...] Visit Diagnoses Diagnosis Screening Mammogram Breast Cancer Screening Mammogram Breast Cancer documented in this encounter Care Teams Rag Sorter And Cutter Relationship Specialty Start Date End Date Kivi, Olga A, M.D. PCP - General Family Medicine 04/14/22 [address] [place] [phone] documented as of this encounter
--- OUTSIDE RECORDS SUMMARY | 2022-10-05 14:06 | XMS_ITS | Encounter Summary ---
:1950 Author Organization [facility] Address [address] [place] [address] Care Team Providers Name Role Phone Olga Dixon M.D. Primary Care Provider Reason for Referral Outpatient (Routine) - Closed Specialty Diagnoses / Procedures Referred By Contact Refer red To Contact Diagnoses Dizziness Olga Dixon M.D. [facility] Region Procedures Echo Transthoracic (TTE) [address] [place] [phone] Referral ID Status Reason Start Date Expiration Date Visits Requ ested Visits Authorized [id number] Closed 04/14/2022 04/14/2023 1 1 Reason for Visit Reason Comments Hypertension With fatigue Appointment Request (Routine) - Closed Specialty Diagnoses / Procedures Referred By Contact Refer red To Contact Family Medicine Referral ID Status Reason Start Date Expiration Date Visits Requ ested Visits Authorized [id number] Closed 04/08/2022 04/08/2023 1 1 Encounter Details Date Type Department Care Team Description 04/14/2022 Comprehensive Visit Department of Olga Dixon (Primary Dx); Family Medicine abo Reynolds M.D. Fatigue [place], [address] [place], [place] [address] [address] [place], [place] [phone] (Work) [phone] Social History Tobacco Use Types Packs/Day Years Used Date Smoking Tobacco: Former Smokeless Tobacco: Never Alcohol Use Standard Drinks/Week Comments Yes 0 (1 standard drink = 0.6 oz pure alcoho l) Sex Assigned at Date Recorded Female 09/08/2022 3:36 PM CDT documented as of this encounter Last Filed Vital Signs Vital Sign Reading Time Taken Comments Blood Pressure 171/74 04/14/2022 3:27 PM CDT Pulse 72 04/14/2022 3:27 PM CDT Temperature 36.6 ??C (97.8 ??F) 04/14/2022 3:27 PM CDT Respiratory Rate 18 04/14/2022 3:27 PM CDT Oxygen Saturation 99% 04/14/2022 3:27 PM CDT Inhaled Oxygen Concentration - - Weight 66 kg (145 lb 9.6 oz) 04/14/2022 3:27 PM CDT Height - - Body Mass Index 25.8 12/26/2013 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 - 04/14/2022 3:30 PM CDT SUBJECTIVE CHIEF COMPLAINT / REASON FOR VISIT Karlene Patino is a 71 y.o. female who presents for evaluation of Hypertension (With fatigue). HISTORY OF PRESENT ILLNESS Patient is a new patient here to see me after many years for dizziness and fatigue. She has had 2 episodes of spinning. One occurred when she rolled over in bed any other current while she was eating. She had a feeling of the room was moving around her and spinning sensation she had no associated nausea. She was not walking during either 1 of the episodes. They both were self limited and she has not had any since. She does have a distant history of hypertension and has been on low-dose medications and her blood pressures been a little bit more high lately and she is wondering if it has been causingsome fatigue as she has been more tired lately. No chest pain or palpitations. No edema. No bowel changes. No cough congestion. No fevers or chills. No other ill contacts. She has been active at home with her . She walks daily and is not limited at all in her exercise capabilities. She does take Mylanta for abdominal distress after eating which she describes as bloating sometimes that seems towork well for her. She is status post gallbladder removal The following portions of the patient's history were reviewed and updated as appropriate: allergies,current medications, medical history, social history, surgical history and problem list. PROBLEM LIST: There is no problem list on file for this patient. Current Outpatient Medications: ??? alendronate (FOSAMAX) 70 mg tablet, , Disp: , Rfl: ??? atenoloL (TENORMIN) 25 mg tablet, Take 1 tablet by mouth every evening., Disp: , Rfl: ??? fexofenadine (MELANY) 180 mg tablet, Take [...] ??? omeprazole (PriLOSEC) [address] capsule, , Disp: , Rfl: OBJECTIVE BP (!) 171/74 (BP Location: Left arm, Patient Position: Sitting, Cuff Size: Regular) Pulse 72 Temp 36.6 ??C (Temporal) Resp 18 Wt 66 kg SpO2 99% BMI 25.80 kg/m?? PHYSICAL EXAM General: Patient is in no apparent distress and is alert and oriented. Mood and affect are bright and engaging. Patient is very pleasant and is articulate and is a good historian. She looks younger than her stated age HEENT: TMs are clear. Nares are clear. Posterior pharynx clear. Teeth in good repair. No scleral icterus is noted. Pupils equal, round, react to light. No conjunctivitis Neck: Supple without lymphadenopathy, JVD, carotid bruits or thyromegaly. Lungs: Clear to auscultation bilaterally. Heart: Regular rate and rhythm with 2+ systolic ejection murmur that radiates to the carotids Abdomen: Soft, thin nontender without hepatosplenomegaly, rebound or rigidity. There is no CVA tenderness. No edema ASSESSMENT / PLAN #1 Dizziness She has a murmur that she thinks is new as she has never been told she had a murmur before. She doeshave a history of rheumatic fever in the past so murmur mom might be chronic? Because of the dizziness and fatigue I did go ahead and order an echocardiogram to define the murmur better. We talked about vertiginous symptoms which it sounds like she is having. She opts not to do Antivert at this time she has only had 2 short episodes. I did change her blood pressure pills around increased her Cozaar to 100 mg daily. Recheck in 2 weeks - Echo Transthoracic (TTE); Future; Expected date: 04/14/2022 #2 Fatigue Lab work is ordered today. I do not have records from her previous doctor so I am unsure of what type of medical management has been done to date so will start with lab work and proceed from there. Herfatigue is mostly afternoon she feels the need to take a nap. She has no exercise intolerance and isvery physically active for her age. Other orders - losartan (COZAAR) 100 mg tablet; Take 1 tablet (100 mg total) by mouth daily., Starting 04/14/2022, Until Fay 04/14/2023, Normal - CBC without Differential; Future; Expected date: 04/14/2022 - Comprehensive Metabolic Panel; Future; Expected date: 04/14/2022 - Lipid Panel; Future; Expected date: 04/14/2022 - S-TSH (Thyroid-Stimulating Hormone - Sensitive); Future; Expected date: 04/14/2022 - S-TSH (Thyroid-Stimulating Hormone - Sensitive) - Lipid Panel - Comprehensive Metabolic Panel - CBC without Differential documented in this encounter Plan of Treatment Upcoming Encounters Date Type Specialty Care Team Description 10/06/2022 Comprehensive Visit Obstetrics and Gil Bailey M.D. Gynecology [address] [place] [address] (Abbe johnson) 02/07/2023 Office Visit Family Medicine Olga Dixon M.D. [address] [place] [phone] (Abbe johnson) documented as of this encounter Procedures Procedure Name Priority Date/Time Associated Comments Diagnosis LIPID PANEL, S Routine 04/14/2022 4:22 PM Dizziness Results for this CDT Fatigue procedure are i n the results section. CBC WITHOUT Routine 04/14/2022 4:22 PM Dizziness Results for this DIFFERENTIAL, B CDT Fatigue procedure ar e in the results section. THYROID-STIMULATING Routine 04/14/2022 4:22 PM Dizziness Results for this HORMONE-SENSITIVE CDT Fatigue procedure are in (S-TSH) the results section. COMPREHENSIVE Routine 04/14/2022 4:22 PM Dizziness Results for this METABOLIC PANEL, S/P CDT Fatigue procedu re are in the results section. documented in [...] e Number CV EIMS CV EIMS NA S-TSH (Thyroid-Stimulating Hormone - Sensitive) (04/14/2022 4:22 PM CDT) athologist Signature TSH, Sensitive 3.7 0.3 - 4.2 04/14/2022 NPRG mIU/L 7:49 PM CDT Specimen Anatomical Collection Method Collection Time Receive d Time (Source) Location / / Volume Laterality Blood (Blood, 04/14/2022 4:22 PM 04/14/20 22 7:12 Venous) CDT PM CDT Olga Dixon M.D. LAB BLOOD ADD-ON Performing Organization Address City/State/ZIP Code Phon e Number [facility]- [address] [place], [place] [address] [place] [address] LAB NPRG [facility] [place] [address] [facility] [address] Lipid Panel (04/14/2022 4:22 PM CDT) athologist Signature Cholesterol, 194 mg/dL 04/14/2022 NPRG Total 7:49 PM CDT Comment: ----REFERENCE VALUE---- Desirable: < 200 Borderline high: 200 - 239 High: > or = 240 Triglycerides 102 mg/dL 04/14/2022 7:49 PM CDT NPR G Comment: ----REFERENCE VALUE---- Normal: <150 Borderline high: 150-199 High: 200-499 Very high: > or =500 Cholesterol, HDL 52 >=50 mg/dL 04/14/2022 7:49 PM CDT NPRG Calculated LDL 122 mg/dL 04/14/2022 7:49 PM CDT COMMISSARY AGENT RG Comment: ----REFERENCE VALUE---- Desirable: <100 mg/dL Above Desirable: 100-129 mg/dL Borderline High: 130-159 mg/dL High: 160-189 mg/dL Very High: >=190 mg/dL Cholesterol, Non-HDL, Calculated 142 mg/dL 022 7:49 PM CDT NPRG Comment: ----REFERENCE VALUE---- Desirable: <130 Above Desirable: 130-159 Borderline high: 160-189 High: 190-219 Very high: > or =220 Specimen Anatomical Collection Method Collection Time Receive d Time (Source) Location / / Volume Laterality Blood (Blood, 04/14/2022 4:22 PM 04/14/20 7:12 Venous) CDT PM CDT Olga Dixon M.D. LAB BLOOD ADD-ON Performing Organization Address City/State/ZIP Code Phon e Number [facility]- [address] [place] [address] [place] [address] [place] [address] [facility] [address] [place] Comprehensive Metabolic Panel (04/14/2022 4:22 PM CDT) athologist Signature Potassium, P 4.2 3.6 - 5.2 04/14/2022 NPRG mmol/L 7:49 PM CDT Sodium, P 136 135 - 145 04/14/2022 NPRG mmol/L 7:49 PM CDT Chloride, P 99 98 - 107 04/14/2022 NPRG mmol/L 7:49 PM CDT Bicarbonate, P 27 22 - 29 04/14/2022 NPRG mmol/L 7:49 PM CDT Anion Gap, P 10 7 - 15 04/14/2022 NPRG 7:49 PM CDT BUN (Blood Urea 14 6 - 21 04/14/2022 NPRG Nitrogen), P mg/dL 7:49 PM CDT Creatinine 0.93 0.59 - 04/14/2022 NPRG 1.04 mg/dL 7:49 PM CDT eGFR-Black/Afric 71 >=60 04/14/2022 NPRG an Panamanian mL/min/BSA 7:49 PM CDT Comment: ----ADDITIONAL INFORMATION---- Estimated GFR calculated using the 2009 CKD_EPI creatinine equation. eGFR Non-Black/ 62 >=60 mL/min/BSA 7:49 PM CDT NPRG Comment: ----ADDITIONAL INFORMATION---- Estimated GFR calculated using the 2009 CKD_EPI creatinine equation. Calcium, Total, P 9.4 8.8 - 10.2 mg/dL 04/14/2022 7:49 PM CDT NPRG Glucose, P 100 70 - 140 mg/dL 04/14/2022 7:49 PM CDT N PRG Protein, Total, P 7.3 6.3 - 7.9 g/dL 04/14/2022 7:49 P M CDT NPRG Albumin, P 4.4 3.5 - 5.0 g/dL 04/14/2022 7:49 PM CDT N PRG Aspartate Aminotransferase 28 8 - 43 U/L 04/14/2022 7 :49 PM CDT NPRG (AST), P Alkaline Phosphatase, P 44 35 - 104 U/L 04/14/2022 7: 49 PM CDT NPRG Alanine Aminotransferase (ALT), 17 7 - 45 U/L 022 7:49 PM CDT NPRG P Bilirubin, Total, P 0.4 <=1.2 mg/dL 04/14/2022 7:49 PM CDT NPRG Specimen Anatomical Collection Method Collection Time Receive d Time (Source) Location / / Volume Laterality Blood (Blood, 04/14/2022 4:22 PM 04/14/20 7:12 Venous) CDT PM CDT Olga Dixon M.D. LAB BLOOD ADD-ON Performing Organization Address City/State/ZIP Code Phon e Number [facility]- [address] [place], [place] [address] [place] [address] [place] [address] CBC without Differential (04/14/2022 4:22 PM CDT) P athologist Signature Hemoglobin 12.3 11.6 - 04/14/2022 NPRG 15.0 g/dL 7:43 PM CDT Hematocrit 37.0 35.5 - 04/14/2022 NPRG 44.9 % 7:43 PM CDT Erythrocytes 4.14 3.92 - 04/14/2022 NPRG 5.13 7:43 PM CDT x10(12)/L MCV 89.4 78.2 - 04/14/2022 NPRG 97.9 fL 7:43 PM CDT RBC Distrib Width 13.1 12.2 - 04/14/2022 NPRG 16.1 % 7:43 PM CDT Platelet Count 258 157 - 371 04/14/2022 NPRG x10(9)/L 7:43 PM CDT Leukocytes 5.7 3.4 - 9.6 04/14/2022 NPRG x10(9)/L 7:43 PM CDT Specimen Anatomical Collection Method Collection Time Receive d Time (Source) Location / / Volume Laterality Blood (Blood, 04/14/2022 4:22 PM 04/14/20 22 7:12 Venous) CDT PM CDT Olga Dixon M.D. LAB BLOOD ADD-ON Performing Organization Address City/State/ZIP Code Phon e Number [facility]- [facility] [address] [place], [place] [address] [place] [address] documented in this encounter Visit Diagnoses Diagnosis Dizziness - Primary Fatigue Dizziness documented in this encounter Care Teams Airframe And Powerplant Mechanic Relationship Specialty Start Date End Date Olga Dixon M.D. PCP - General Family Medicine 04/14/22 [address] [place] [address] documented as of this encounter
[2022-10-05 22:36] LABS: SARS PCR* Negative SARS-CoV-2 (Negative)
== END 2022-10-05 14:04 | disposition home or self-care (01) ==
LOC: LONREF 14:04
PROVIDERS: PCP Family Medicine; Visit Provider Family Medicine
DX: Z20.822 Contact with and (suspected) exposure to COVID-19 (principal); R05.9 Cough, unspecified
CPT/HCPCS: 87635

== ENCOUNTER 2022-12-20 10:11 | Outpatient (CLI) | payer MEDICARE, BC, SELFPAY ==
[2022-12-20 14:36] LABS: Chloride* 101 mmol/L (96-114); Sodium* 134 mmol/L (135-149)
[2022-12-20 14:37] LABS: Potassium* 4.2 mmol/L (3.6-5.1)
[2022-12-20 14:39] LABS: Creatinine* 0.8 mg/dL (0.5-1.5); Estimated Glomerular Filt Rate 78 ml/min
[2022-12-20 14:40] LABS: Blood Urea Nitrogen* 11 mg/dL (7-30); Calcium* 8.7 mg/dL (8.4-10.6); Carbon Dioxide* 28 mmol/L (20-32); Glucose* 98 mg/dL (60-115)
== END 2022-12-20 10:12 | disposition home or self-care (01) ==
PROVIDERS: PCP Family Medicine; Visit Provider Family Medicine
DX: I10 Essential (primary) hypertension (principal); R30.0 Dysuria
CPT/HCPCS: 80048; 87086

== ENCOUNTER 2023-07-22 12:36 | Outpatient (CLI) | payer MEDICARE, BC, SELFPAY ==
--- NOTE | 2023-07-22 13:00 | CRLHL7_ITS ---
For Patients: As a result of the Century Cures Act, medical imaging exams and procedure reports are released immediately into your electronic medical record. You may view this report before your referring provider. If you have questions, please contact your health care provider. INDICATION: Hearing loss. TECHNIQUE: Multiplanar multisequence MR imaging acquired through the brain and internal auditory canals prior to and following intravenous contrast. COMPARISON: None. FINDINGS: Prominence of the ventricles and sulci compatible with minimal diffuse cerebral volume loss. No mass effect or midline shift. Few punctate FLAIR hyperintensities in the supratentorial white matter, typical for minimal chronic microvascular ischemic changes. No intracranial hemorrhage or pathologic extra-axial fluid collection. No diffusion restriction to suggest acute infarction. No pathologic intracranial enhancement. Incidental mild left cerebellar tonsillar ectopia. No mass or pathologic enhancement within the internal auditory canals or cerebellopontine angles. No concerning signal abnormalities in the inner ear structures. No vascular loop within the internal auditory canals. The major arterial flow voids of the skullbase are preserved. Thinning of the ocular lenses. The paranasal sinuses are well aerated. Trace mastoid fluid bilaterally. IMPRESSION: 1. No acute intracranial abnormality. 2. No mass or pathologic enhancement within the internal auditory canals or cerebellopontine angles. 3. Minimal chronic microvascular ischemic changes and diffuse cerebral volume loss. Dictated by Joshua Pettit MD @ 07/22/2023 4:55:43 PM (Electronically Signed)
== END 2023-07-22 12:37 | disposition home or self-care (01) ==
LOC: MRI 12:37
PROVIDERS: PCP Family Medicine; Visit Provider Otolaryngology
DX: H91.8X9 Other specified hearing loss, unspecified ear (principal); I67.82 Cerebral ischemia
CPT/HCPCS: 70553; A9575